=== PATIENT | male | born 1965 | race Caucasian/White ===

== ENCOUNTER 2016-10-15 21:43 | Emergency (ER) | payer BC, MEDICARE ==
[2016-10-15 22:07] VITALS: RESP 18
--- NOTE | 2016-10-15 23:28 | ED ---
Extremity Problem HPI - General Chief complaint: Extremity Problem,Nontraumatic Stated complaint: Poss Blood Clot in Leg Time Seen by Provider: 10/15/16 22:57 Source: patient, RN notes reviewed Mode of arrival: ambulatory Limitations: no limitations - History of Present Illness Initial comments: 51-year-old male presents to the emergency Department chief complaint of left lower extremity pain. Patient states he noticed some redness and swelling to the lower part of his left leg. Patient states it has been warm and tender to touch as well. Patient is visible blood clot or something else going on. Patient denies any fever or chills. Patient states his problems with lower extremity swelling he did wears compression stockings which did help with swelling. Patient states that he was concerned due to the continued redness and swelling to without that he should be evaluated. Patient states is not currently having any other symptoms at this time. Patient denies any recent fever, chills, shortness of breath, chest pain, back pain, abdominal pain, nausea vomiting, numbness or tingling, dysuria or hematuria, constipation or diarrhea, headaches or visual changes, or any other current symptoms. - Related Data Home Medications Medication Instructions Recorded Confirmed Atenolol [Tenormin] 25 mg PO QAM 12/17/13 10/15/16 Dabigatran [Pradaxa] 150 mg PO BID 12/17/13 10/15/16 Furosemide [Lasix] 20 mg PO DAILY 12/17/13 10/15/16 Gabapentin [Neurontin] 400 mg PO TID 12/17/13 10/15/16 Hydrochlorothiazide [Hydrodiuril] 25 mg PO DAILY 12/17/13 10/15/16 Lisinopril [Zestril] 5 mg PO QAM 12/17/13 10/15/16 Multivitamin [Men's Multi-Vitamin] 1 tab PO DAILY 12/17/13 10/15/16 Naproxen 500 mg PO BID 12/17/13 10/15/16 Simvastatin [Zocor] 40 mg PO HS 12/17/13 10/15/16 Allopurinol [Zyloprim] 300 mg PO DAILY 01/16/15 10/15/16 Previous Rx's Medication Instructions Recorded Cephalexin [Keflex] 500 mg PO Q6HR #40 cap 10/16/16 Allergies Allergy/AdvReac Type Severity Reaction Status Date / Time adhesive tape Allergy Severe Rash/Hives Verified 10/15/16 23:09 Review of Systems ROS Statement: Those systems with pertinent positive or pertinent negative responses have been documented in the HPI. ROS Other: All systems not noted in ROS Statement are negative. Past Medical History Past Medical History: Asthma, Hyperlipidemia, Hypertension, Musculoskeletal Disorder, Skin Disorder, Sleep Apnea/CPAP/BIPAP Additional Past Medical History / Comment(s): current pos occult stool, neuropathy, chronic back pain-cannot lay flat-gout, foot ulcers History of Any Multi-Drug Resistant Organisms: None Reported Past Surgical History: Hernia Repair, Joint Replacement, Orthopedic Surgery Additional Past Surgical History / Comment(s): right great toe amputation, bilateral knee and cali hip,2013 foot surgery bilat, l great toe bone removal with pins x 2. L 2nd toe shortened with pinning, rt 3rd toe bone removal- shortening and bent. Past Anesthesia/Blood Transfusion Reactions: No Reported Reaction Past Psychological History: No Psychological Hx Reported Smoking Status: Former smoker Past Alcohol Use History: None Reported Additional Past Alcohol Use History / Comment(s): quit smoking 1979,smoked <5 yrs <1ppd,pt states "drinks about 14 beers daily" Past Drug Use History: None Reported - Past Family History Mother Family Medical History: Diabetes Mellitus Father Family Medical History: Cancer Additional Family Medical History / Comment(s): esophageal General Exam - General Exam Comments Initial Comments: General: The patient is awake and alert, in no distress, and does not appear acutely ill. Neck: The neck is supple, there is no tenderness. Cardiovascular: There is a regular rate and rhythm. No murmur, rub or gallop is appreciated. Respiratory: Lungs are clear to auscultation, respirations are non-labored, breath sounds are equal. No wheezes, stridor, rales, or rhonchi. Musculoskeletal: Sensation intact with 2+ pulses. Left foot x-ray performed torsion left knee and left ankle. Patient does appear to have an area of redness to left foot x-ray with associated swelling noted. Appears to be chronic changes to legs however the erythema around the left central leg does appear to be new. There is a small abrasion to the center of a reddened area. Neurological: CN II-XII intact, There are no obvious motor or sensory deficits. Coordination appears grossly intact. Speech is normal. Skin: Skin is warm and dry and no rashes or lesions are noted. Psychiatric: Normal mood and affect. Limitations: no limitations Course Vital Signs 10/15/16 22:03 Temperature 99.0 F Pulse Rate 111 H Respiratory 18 Rate Blood Pressure 129/89 O2 Sat by Pulse 96 Oximetry Medical Decision Making - Medical Decision Making 51-year-old male presents for left lower x-ray swelling and redness. At this time patient's ultrasounds are reviewed that does show a cellulitis. There is a small area that is palpable on exam. We will start antibiotics. We discussed follow-up for this for resolution. At this time due to the patient's chronic nature of the legs we will not open the wound due to poor healing we will have the patient follow-up to see how he progresses. At this time he states it is already shrunk in size. At this time the patient will be discharged home on Keflex. QUESTIONS have been answered. He will be discharged home. - Radiology Data Radiology results: report reviewed, image reviewed Disposition Clinical Impression: Left leg cellulitis Disposition: HOME SELF-CARE Condition: Stable Instructions: Cellulitis (ED) Additional Instructions: Please use medication as discussed. Please follow up with family doctor if symptoms have not improved over the next two days. Please return to the emergency room if your symptoms increase or worsen or for any other concerns. Prescriptions: Cephalexin [Keflex] 500 mg PO Q6HR #40 cap Referrals: Shahida Greer MD [Primary Care Provider] - 1-2 days Time of Disposition: 00:35
--- NOTE | 2016-10-16 00:04 | US ---
EXAM: US Duplex Left Lower Extremity Veins. CLINICAL HISTORY: Left lower extremity pain. TECHNIQUE: Real-time ultrasound scan of the veins of the left lower extremity with color Doppler flow, spectral waveform analysis and compression. COMPARISON: No relevant prior studies available. FINDINGS: Deep veins: Unremarkable. No DVT in the common femoral, femoral or popliteal veins. Superficial veins: Unremarkable. No thrombus in the visualized greater saphenous vein. Soft tissues: No acute findings. No popliteal cyst. IMPRESSION: 1. No sonographic evidence for deep vein thrombosis in the left lower extremity. 2. Please see separate soft tissue ultrasound report for further detail.
--- NOTE | 2016-10-16 00:30 | US ---
EXAM: US Left Lower Extremity Non-Vascular, Complete. CLINICAL HISTORY: Left ankle pain, redness, and palpable abnormality. TECHNIQUE: Real-time ultrasound scan of the left lower extremity with image documentation. COMPARISON: No relevant prior studies available. FINDINGS: Soft tissues: Targeted ultrasound of the left ankle soft tissues at the site of redness and palpable abnormality shows diffusely increased echogenicity and hyperemia as well as edema of the subcutaneous fat. Within this region, there is a complex heterogeneously hypoechoic irregular avascular collection measuring 10 mm x 7 mm x 8 mm. IMPRESSION: 1. At the site of palpable abnormality and redness in the left ankle, there is a 10 mm x 7 mm x 8 mm complex irregular avascular collection which may reflect abscess or phlegmon. Followup to resolution recommended. 2. Surrounding the above described collection, there is diffusely increased echogenicity, hyperemia, and edema of the subcutaneous fat which is nonspecific but most compatible with cellulitis. [employer] 10/16/16 00:37 Verify Receipt Verified receipt with clerk Mcfarlane in the ER for LEXI BURRIS @ [id number]
[2016-10-16 00:36] VITALS: BP 145/91; PULSE 109; TEMP 98.6
[2016-10-16] MEDS ORDERED: CEPHALEXIN 500MG STARTER PACK 4 CAP BTL PO STA (00:36)
== END 2016-10-16 00:46 | disposition home or self-care (01) ==
LOC: EC 21:43
DX: L03.116 Cellulitis of left lower limb (principal); I10 Essential (primary) hypertension; E78.5 Hyperlipidemia, unspecified; G62.9 Polyneuropathy, unspecified; Z87.891 Personal history of nicotine dependence; Z79.899 Other long term (current) drug therapy; Z91.048 Other nonmedicinal substance allergy status; Z96.643 Presence of artificial hip joint, bilateral; Z96.653 Presence of artificial knee joint, bilateral; Z89.411 Acquired absence of right great toe
CPT/HCPCS: 99283

== ENCOUNTER → 2016-12-30 | Outpatient (CLI) | payer BC, MEDICARE ==
--- NOTE | 2016-12-31 23:21 | MR ---
EXAMINATION TYPE: MR foot RT wo/w con DATE OF EXAM: 12/30/2016 11:13 AM COMPARISON: NONE HISTORY: 51-year-old male evaluated for osteomyelitis of the right great toe. Wound along the posteri or aspect. Technique: Multiplanar, multisequence images of the right foot were obtained before and after adminis tration of 20 mL intravenous MultiHance gadolinium contrast. FINDINGS: Prior great toe amputation at the level of the first IP joint. There is ulceration along the plantar aspect of the residual great toe. Mild patchy increased fluid signal within the distal aspect of the first proximal phalanx. On sagittal T1 image 6, enhancing soft tissue inflammation extends from the p atient's ulceration to the underlying bone and there appears to be corresponding cortical thinning of the plantar aspect of the phalangeal head. Degenerative changes at the first MTP joint. Advanced degenerative changes within the mid foot and mendoza mmertoe deformities are noted. Generalized forefoot soft tissue edema. IMPRESSION: 1. Prior great toe amputation at the level of the IP joint. There is a wound along the plantar aspect of the residual great toe and enhancing inflammatory changes extend to abut the underlying bone. Whi le there is no lindsey bone marrow replacement at this time, there is cortical thinning along the plant ar aspect of the phalangeal head and impending osteomyelitis is difficult to exclude. Short interval follow-up can be considered. 2. Midfoot and first MTP joint osteoarthrosis. Hammertoe deformities. 3. Mild generalized forefoot soft tissue swelling versus cellulitis.
== END | disposition home or self-care (01) ==
LOC: RADMRIMAIN 10:24
PROVIDERS: ATTEND Surgery Vascular Surgery
DX: S91.101A Unspecified open wound of right great toe without damage to nail, initial encounter (principal)
CPT/HCPCS: 73720; A9577

== ENCOUNTER 2017-02-01 13:56 | Inpatient (IN) | payer BC, MEDICARE ==
[2017-02-01] MEDS ORDERED: SODIUM CHLORIDE 0.9% 1,000 ML IV STA ×4 (14:24→15:48)
--- NOTE | 2017-02-01 14:30 | ED ---
General Adult HPI - General Chief complaint: Weakness Stated complaint: Weakness Time Seen by Provider: 02/01/17 14:18 Source: patient, family, RN notes reviewed Mode of arrival: ambulatory Limitations: no limitations - History of Present Illness Initial comments: Patient is a pleasant 51-year-old male presenting to the emergency department with concerns for general weakness. Patient has been having diarrhea 6 or more times daily for the past 6 days. Diarrhea is watery. Decreased appetite however patient is tolerating liquids. Patient has been losing weight over the past week. Patient has had some cold symptoms intermittently for the past month or 2. Patient made feel slightly short of breath. No significant abdominal pain. No chest pain. - Related Data Home Medications Medication Instructions Recorded Confirmed Atenolol [Tenormin] 25 mg PO QAM 12/17/13 02/01/17 Dabigatran [Pradaxa] 150 mg PO BID 12/17/13 02/01/17 Furosemide [Lasix] 20 mg PO DAILY 12/17/13 02/01/17 Gabapentin [Neurontin] 400 mg PO TID 12/17/13 02/01/17 Hydrochlorothiazide [Hydrodiuril] 25 mg PO DAILY 12/17/13 02/01/17 Lisinopril [Zestril] 10 mg PO QAM 12/17/13 02/01/17 Multivitamin [Men's Multi-Vitamin] 1 tab PO DAILY 12/17/13 02/01/17 Naproxen 500 mg PO BID 12/17/13 02/01/17 Simvastatin [Zocor] 40 mg PO HS 12/17/13 02/01/17 Allopurinol [Zyloprim] 300 mg PO DAILY 01/16/15 02/01/17 Albuterol Inhaler [Ventolin Hfa 1 - 2 puff INHALATION RT-Q6H PRN 10/21/16 Inhaler] Allergies Allergy/AdvReac Type Severity Reaction Status Date / Time adhesive tape Allergy Severe Rash/Hives Verified 02/01/17 14:53 Review of Systems ROS Statement: Those systems with pertinent positive or pertinent negative responses have been documented in the HPI. ROS Other: All systems not noted in ROS Statement are negative. Constitutional: Denies: fever Eyes: Denies: eye pain ENT: Denies: ear pain Respiratory: Reports: dyspnea Cardiovascular: Denies: palpitations Endocrine: Reports: fatigue Gastrointestinal: Reports: diarrhea. Denies: abdominal pain Genitourinary: Denies: dysuria Skin: Denies: rash Neurological: Reports: weakness Psychiatric: Denies: anxiety Past Medical History Past Medical History: Asthma, Hyperlipidemia, Hypertension, Musculoskeletal Disorder, Skin Disorder, Sleep Apnea/CPAP/BIPAP Additional Past Medical History / Comment(s): current pos occult stool, neuropathy, chronic back pain-cannot lay flat-gout, foot ulcers History of Any Multi-Drug Resistant Organisms: None Reported Past Surgical History: Hernia Repair, Joint Replacement, Orthopedic Surgery Additional Past Surgical History / Comment(s): right great toe amputation, bilateral knee and cali hip,2013 foot surgery bilat, l great toe bone removal with pins x 2. L 2nd toe shortened with pinning, rt 3rd toe bone removal- shortening and bent. Past Anesthesia/Blood Transfusion Reactions: No Reported Reaction Past Psychological History: No Psychological Hx Reported Smoking Status: Never smoker Past Alcohol Use History: Daily Past Drug Use History: None Reported - Past Family History Mother Family Medical History: Diabetes Mellitus Father Family Medical History: Cancer Additional Family Medical History / Comment(s): esophageal General Exam Limitations: no limitations General appearance: alert, in no apparent distress Head exam: Present: atraumatic Eye exam: Present: normal appearance, PERRL ENT exam: Present: normal oropharynx Neck exam: Present: normal inspection Respiratory exam: Present: normal lung sounds bilaterally Cardiovascular Exam: Present: tachycardia, other (Pulses diminished throughout) GI/Abdominal exam: Present: soft, normal bowel sounds. Absent: distended, tenderness, pulsatile mass Extremities exam: Present: pedal edema. Absent: calf tenderness Neurological exam: Present: alert, CN II-XII intact. Absent: motor sensory deficit Psychiatric exam: Present: normal affect, normal mood Skin exam: Absent: rash Course Vital Signs 02/01/17 02/01/17 02/01/17 13:58 14:46 15:26 Temperature 97.5 F L Pulse Rate 102 H 108 H 101 H Respiratory 20 18 18 Rate Blood Pressure 68/42 70/47 O2 Sat by Pulse 92 L 95 98 Oximetry 02/01/17 02/01/17 15:40 16:40 Temperature Pulse Rate 101 H 99 Respiratory 18 18 Rate Blood Pressure 76/42 73/45 O2 Sat by Pulse 96 95 Oximetry - Reevaluation(s) Reevaluation #1: 02/01/17 16:53 Patient has blood pressure the mid 70s despite to have liters of fluid. His also discussed with Dr. Dubose who will consult. Fluids will continue. Levophed will be started. EKG Findings - EKG Comments: EKG Findings:: A. fib with RVR, rate 110. QRS 92. QT 324. QTC 438. Normal axis. Normal QRS. Normal ST-T. Procedures - Sepsis Sepsis Focused Exam #1 Time Sepsis Criteria Met: 15:44 Sepsis Focused Exam Date: 02/01/17 Sepsis Focused Exam Time: 16:37 Sepsis Focused Exam Complete: Yes Vital Signs & RN Notes Reviewed: Yes Capillary Refill: > 2 Seconds: Fingers (2-3 seconds), Toes (3 seconds) Peripheral Pulses: Weak: Radial (R), Radial (L), Dorsalis Pedis (R), Dorsalis Pedis (L) Skin Color: Normal for Patient Respiratory Exam: normal lung sounds Cardiovascular Exam: irregular rhythm Medical Decision Making - Medical Decision Making Patient reevaluated and updated. Patient concern exists for acute renal failure likely secondary to diarrhea and decreased oral intake. Chest x-ray concerning for pneumonia versus effusion. Patient meet severe sepsis criteria diagnosed at 3:44 PM. IV antibiotics been started. Blood cultures and lactic acid have been drawn. 4 L saline has been ordered. Case was discussed with Dr. Lamas, who will admit for Dr. Greer. Dr. Dubose paged for critical care/ pulmonary consult. Cardiology will also be placed on consult - Lab Data Result diagrams: 02/01/17 14:35 02/01/17 14:35 Lab Results 02/01/17 02/01/17 02/01/17 Range/Units 14:35 14:35 14:35 WBC 3.4 L (3.8-10.6) k/uL RBC 5.14 (4.30-5.90) m/uL Hgb 17.0 (13.0-17.5) gm/dL Hct 51.9 (39.0-53.0) % MCV 101.0 H (80.0-100.0) fL MCH 33.0 (25.0-35.0) pg MCHC 32.7 (31.0-37.0) g/dL RDW 13.6 (11.5-15.5) % Plt Count 132 L (150-450) k/uL Neutrophils % 80 % Lymphocytes % 14 % Monocytes % 4 % Eosinophils % 0 % Basophils % 1 % Neutrophils # 2.7 (1.3-7.7) k/uL Lymphocytes # 0.5 L (1.0-4.8) k/uL Monocytes # 0.1 (0-1.0) k/uL Eosinophils # 0.0 (0-0.7) k/uL Basophils # 0.0 (0-0.2) k/uL Macrocytosis Slight PT (9.0-12.0) sec INR (<1.1) APTT (22.0-30.0) sec Carbon Monoxide, Quant (<10.0) % Sodium 142 (137-145) mmol/L Potassium 4.1 (3.5-5.1) mmol/L Chloride 104 (98-107) mmol/L Carbon Dioxide 19 L (22-30) mmol/L Anion Gap 19 mmol/L BUN 45 H (9-20) mg/dL Creatinine 4.19 H (0.66-1.25) mg/dL Est GFR (MDRD) Af Amer 18 (>60 ml/min/1.73 sqM) Est GFR (MDRD) Non-Af 15 (>60 ml/min/1.73 sqM) Glucose 111 H (74-99) mg/dL Plasma Lactic Acid Gregorio (0.7-2.0) mmol/L Calcium 8.5 (8.4-10.2) mg/dL Phosphorus 6.6 H (2.5-4.5) mg/dL Magnesium 2.4 H (1.6-2.3) mg/dL Total Bilirubin 0.9 (0.2-1.3) mg/dL AST 206 H (17-59) U/L ALT 90 H (21-72) U/L Alkaline Phosphatase 78 (38-126) U/L Total Creatine Kinase 1101 H (55-170) U/L CK-MB (CK-2) 4.6 H* (0.0-2.4) ng/mL CK-MB (CK-2) Rel Index 0.4 Troponin I 0.053 H* (0.000-0.034) ng/mL Total Protein 6.9 (6.3-8.2) g/dL Albumin 3.6 (3.5-5.0) g/dL TSH 9.740 H (0.465-4.680) mIU/L Free T4 1.64 (0.78-2.19) ng/dL Free T3 pg/mL 5.2 (2.8-5.3) pg/ml 02/01/17 02/01/17 02/01/17 Range/Units 14:35 14:35 14:35 WBC (3.8-10.6) k/uL RBC (4.30-5.90) m/uL Hgb (13.0-17.5) gm/dL Hct (39.0-53.0) % MCV (80.0-100.0) fL MCH (25.0-35.0) pg MCHC (31.0-37.0) g/dL RDW (11.5-15.5) % Plt Count (150-450) k/uL Neutrophils % % Lymphocytes % % Monocytes % % Eosinophils % % Basophils % % Neutrophils # (1.3-7.7) k/uL Lymphocytes # (1.0-4.8) k/uL Monocytes # (0-1.0) k/uL Eosinophils # (0-0.7) k/uL Basophils # (0-0.2) k/uL Macrocytosis PT 12.2 H (9.0-12.0) sec INR 1.2 (<1.1) APTT 55.1 H (22.0-30.0) sec Carbon Monoxide, Quant 1.4 (<10.0) % Sodium (137-145) mmol/L Potassium (3.5-5.1) mmol/L Chloride (98-107) mmol/L Carbon Dioxide (22-30) mmol/L Anion Gap mmol/L BUN (9-20) mg/dL Creatinine (0.66-1.25) mg/dL Est GFR (MDRD) Af Amer (>60 ml/min/1.73 sqM) Est GFR (MDRD) Non-Af (>60 ml/min/1.73 sqM) Glucose (74-99) mg/dL Plasma Lactic Acid Gregorio 2.1 H (0.7-2.0) mmol/L Calcium (8.4-10.2) mg/dL Phosphorus (2.5-4.5) mg/dL Magnesium (1.6-2.3) mg/dL Total Bilirubin (0.2-1.3) mg/dL AST (17-59) U/L ALT (21-72) U/L Alkaline Phosphatase (38-126) U/L Total Creatine Kinase (55-170) U/L CK-MB (CK-2) (0.0-2.4) ng/mL CK-MB (CK-2) Rel Index Troponin I (0.000-0.034) ng/mL Total Protein (6.3-8.2) g/dL Albumin (3.5-5.0) g/dL TSH (0.465-4.680) mIU/L Free T4 (0.78-2.19) ng/dL Free T3 pg/mL (2.8-5.3) pg/ml - Radiology Data Radiology results: image reviewed (Chest x-ray shows new left lower lobe consolidation and effusion. Abdominal x-ray shows nonacute abdomen.) Critical Care Time Critical Care Time: Yes Total Critical Care Time: 41 Disposition Clinical Impression: Acute renal failure (ARF), Severe sepsis, Pneumonia, Atrial fibrillation Disposition: ADMITTED IP TO THIS [facility] Condition: Critical Decision Time: 15:51
[2017-02-01 14:55] LABS: Basophils % (A) 1 %; CH 33.9; CHCM 33.7; Eosinophils % (A) 0 %; HCT 51.9 % (39.0-53.0); HDW 2.73; Luc # (Auto) 0.07; Luc % (Auto) 2; Lymphocytes # (A) 0.5 k/uL (1.0-4.8); Lymphocytes % (A) 14 %; MCHC 32.7 g/dL (31.0-37.0); Macrocytosis Slight; Monocytes # (A) 0.1 k/uL (0-1.0); Monocytes % (A) 4 %; Neutrophils # (A) 2.7 k/uL (1.3-7.7); Neutrophils % (A) 80 %; RBC 5.14 m/uL (4.30-5.90); RDW 13.6 % (11.5-15.5); WBC 3.4 k/uL (3.8-10.6)
[2017-02-01 15:08] LABS: INR 1.2 (<1.1); Partial Thromboplastin Time 55.1 sec (22.0-30.0); Prothrombin Time 12.2 sec (9.0-12.0)
[2017-02-01 15:27] LABS: Calcium 8.5 mg/dL (8.4-10.2); Magnesium 2.4 mg/dL (1.6-2.3); Phosphorous 6.6 mg/dL (2.5-4.5); Potassium 4.1 mmol/L (3.5-5.1); Total Bilirubin 0.9 mg/dL (0.2-1.3); Total Protein 6.9 g/dL (6.3-8.2)
[2017-02-01 15:35] LABS: Creatine Kinase MB 4.6 ng/mL (0.0-2.4); Troponin I 0.053 ng/mL (0.000-0.034)
--- NOTE | 2017-02-01 15:38 | XR ---
EXAMINATION TYPE: XR chest 2V DATE OF EXAM: 02/01/2017 COMPARISON: 10/31/2013 HISTORY: Short of breath TECHNIQUE: Frontal and lateral views of the chest are obtained. FINDINGS: There is combined pleural fluid and consolidation in the left lower lobe. Right lung is cl ear. There is no heart failure. There are chest leads. IMPRESSION: There is new left lower lobe consolidation and pleural fluid compared to old exam. Cardi omegaly. No heart failure.
--- NOTE | 2017-02-01 15:41 | XR ---
EXAMINATION TYPE: XR abdomen 1V DATE OF EXAM: 02/01/2017 COMPARISON: NONE HISTORY: Short of breath and weakness. Weight loss. TECHNIQUE: 2 views FINDINGS: There is no sign of intestinal obstruction or pneumoperitoneum. There is bilateral hip pros thesis. There are no pathologic calcifications over the kidneys. Fecal pattern is normal. IMPRESSION: Nonacute abdomen.
[2017-02-01] MEDS ORDERED: LEVOFLOXACIN 750MG-D5W PMX 750 MG in DEXTROSE/WATER 1 150ML.BAG IVPB STA (15:46)
[2017-02-01] MEDS ORDERED: PNEUMONIA PROTOCOL UTILIZED 1 EACH MISC PO PRN (15:46)
[2017-02-01] MEDS ORDERED: PIPERACILLIN-TAZOBACTAM 3.375 GM in DEXTROSE/WATER 1 50ML.BAG IVPB STA (15:46)
[2017-02-01] MEDS ORDERED: SODIUM CHLORIDE 0.9% 1,100 ML IV STA (15:52)
[2017-02-01] MEDS: SODIUM CHLORIDE 0.9% 1,000 ML IV SCH (16:15)
[2017-02-01] MEDS ORDERED: DEXAMETHASONE SOD PHOSPHATE 10 MG/ML 1 ML VIAL IV STA (16:49)
[2017-02-01] MEDS ORDERED: NOREPINEPHRIN 4 MG-0.9% NS PMX 4 MG/250 ML ML IV SCH (17:00)
[2017-02-01 17:57] LABS: Glucose,Whole Blood 131 mg/dL (75-99)
[2017-02-01 19:11] LABS: Amorphous Sediment,Urine Rare /hpf; Appearance,Urine Turbid (Clear); Bacteria,Urine Rare /hpf; Bilirubin,Urine Negative (Negative); Glucose,Urine (UA) Negative (Negative); Ketones,Urine Negative (Negative); Leukocyte Esterase,Urine Negative (Negative); Mucus,Urine Rare /hpf; Nitrite,Urine Negative (Negative); PH, Urine 5.5 (5.0-8.0); Particle Count 72553; Protein,Urine 2+ (Negative); RBC,Urine 16 /hpf (0-5); Specific Gravity,Urine 1.018 (1.001-1.035); Squamous Epithelial Cell,Urine 1 /hpf (0-4); UA Billing (MACRO vs. MICRO) MICRO; WBC,Urine 13 /hpf (0-5)
[2017-02-01] MEDS ORDERED: NALOXONE 0.4 MG/ML 1 ML VIAL IV PRN (19:24)
[2017-02-01] MEDS ORDERED: DABIGATRAN 150 MG CAP PO SCH (21:00)
[2017-02-01] MEDS ORDERED: ACETAMINOPHEN TAB 325 MG TAB PO PRN (21:47)
[2017-02-01] MEDS: DABIGATRAN 75 MG CAP PO SCH (22:02)
[2017-02-01] MEDS: GABAPENTIN 400 MG CAP PO SCH (22:02)
[2017-02-02] MEDS: SODIUM CHLORIDE 0.9% 1,000 ML IV SCH ×5 (00:10→20:44)
[2017-02-02] MEDS ORDERED: TERBUTALINE FOR EXTRAVASATION 1 MG/ML VIAL SQ STA (01:38)
[2017-02-02] MEDS: PIPERACILLIN-TAZOBACTAM 3.375 GM in DEXTROSE/WATER 1 50ML.BAG IVPB SCH ×3 (01:43→18:16)
[2017-02-02] MEDS: ALBUTEROL NEBULIZED 2.5 MG/3 ML INHALATION PRN ×4 (01:54→19:55)
[2017-02-02 04:43] LABS: Basophils % (A) 0 %; CH 33.4; CHCM 33.1; Eosinophils % (A) 0 %; HCT 46.2 % (39.0-53.0); HDW 2.78; HGB 14.9 gm/dL (13.0-17.5); Luc # (Auto) 0.08; Luc % (Auto) 3; Lymphocytes # (A) 0.3 k/uL (1.0-4.8); Lymphocytes % (A) 12 %; MCH 32.8 pg (25.0-35.0); MCHC 32.3 g/dL (31.0-37.0); MCV 101.5 fL (80.0-100.0); Macrocytosis Slight; Mean Platelet Volume 7.4; Monocytes # (A) 0.1 k/uL (0-1.0); Monocytes % (A) 5 %; Neutrophils # (A) 1.8 k/uL (1.3-7.7); Neutrophils % (A) 79 %; RBC 4.55 m/uL (4.30-5.90); RDW 13.5 % (11.5-15.5); WBC 2.3 k/uL (3.8-10.6); WBC (Perox) 2.35
[2017-02-02 05:19] LABS: Calcium 7.1 mg/dL (8.4-10.2); Magnesium 2.2 mg/dL (1.6-2.3); Phosphorous 2.9 mg/dL (2.5-4.5); Potassium 3.9 mmol/L (3.5-5.1)
--- NOTE | 2017-02-02 07:21 | XR ---
EXAMINATION TYPE: XR chest 1V portable DATE OF EXAM: 02/02/2017 COMPARISON: 02/01/2017 HISTORY: Shortness of breath TECHNIQUE: Single frontal view of the chest is obtained. FINDINGS: The heart is enlarged and there is large area of consolidation involving the left lung wit h pleural effusion. Subsegmental changes at the right lung base. Could not exclude mild central venou s congestion. IMPRESSION: 1. Bilateral lower lobe infiltrate and pleural effusion greater on the left.
[2017-02-02] MEDS: MULTIVITAMINS, THERA 1 EACH TAB PO SCH (08:57)
[2017-02-02] MEDS: DABIGATRAN 75 MG CAP PO SCH ×2 (08:57→21:37)
[2017-02-02] MEDS: GABAPENTIN 400 MG CAP PO SCH ×3 (08:57→21:37)
[2017-02-02] MEDS: PANTOPRAZOLE 40 MG/10 ML VIAL IV SCH (08:57)
[2017-02-02] MEDS ORDERED: ATENOLOL 25 MG TAB PO STA (09:43)
[2017-02-02] MEDS ORDERED: THIAMINE 100 MG/ML 2 ML VIAL IM STA (09:47)
[2017-02-02] MEDS ORDERED: LORazepam 2 MG/ML SYRINGE IV PRN ×3 (09:47)
--- NOTE | 2017-02-02 12:28 | P.CNPUL ---
History of Present Illness Consult date: 02/02/17 Requesting physician: Augustine Lamas Reason for consult: pneumonia, other (Sepsis and dehydration) Chief complaint: 1 week history of diarrhea and weakness History of present illness: This is a 51-year-old white male with history of multiple medical problems including chronic atrial fibrillation, chronic bilateral lower extremities ulcers, being followed at the [facility] history of alcoholism, hypertension, gout, and history of hyperlipidemia. Patient is primarily a patient of Dr. Greer, for the last week and the patient has been complaining of severe diarrhea with over 5-6 watery stools per day. Patient has been complaining of poor appetite and not drinking much liquids including alcohol which he drinks usually on a daily basis. Patient normally drinks about 20 beers per day. But none in the last few days. Patient has also been complaining of some weight loss, nonproductive cough, but no fever no chills no hemoptysis and no chest pain. Upon arrival to the ER, patient was hypotensive requiring fluid boluses, patient was also in A. fib with controlled rate, he was also noted to have relative leukopenia, acute renal failure with BUN of 45 creatinine of 4.19, anion gap metabolic acidosis of 19 lactic acidosis with lactic acid of 2.1, elevated CPK and elevated troponin, and abnormal chest x- ray showing left lower lobe consolidation and possibly a left pleural effusion. Ultrasound was ordered last night, and it is pending at the time of this dictation. Over the last 12 hours, patient received fluid boluses, started on antibiotics in the form of Levaquin and Zosyn, C. difficile screen has been negative, patient was also placed on the alcohol withdrawal protocol, placed back on his usual meds for atrial fibrillation including Tenormin and Pradaxa. Cultures are pending, and ultrasound of the chest is also pending. Patient may require ultrasound guided thoracentesis. In the meantime the patient is demonstrating clinical improvement, and he is yet to be seen by infectious disease on consultation and by cardiology on consultation. 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 Review of Systems Constitutional: Weakness fatigue malaise and weight loss. No fever, no chills. HEENT: Negative Pulmonary: Dry hacking cough, some shortness of breath, no chest pain, no hemoptysis, no fever, and no chills. Cardiac: History of chronic atrial fibrillation maintained on Pradaxa and on Tenormin. Denies any chest pain or palpitations. GI: Refer to HPI, patient had one week history of diarrhea but no melena, no hematemesis, no abdominal pain. Genitourinary: Denies any dysuria frequency or urgency. Hematologic: Denies any history of malignancy denies any history of anemia. And in the history of thrombocytopenia. Neurologic: Occasional headaches, no blurred vision, no dizziness, no history of seizure disorder. Psychiatric: Denies any symptoms of depression or suicidal thoughts. Patient does have history of alcohol dependence and alcoholism, drinks on the average of 20 beers per day. Dermatologic: History of chronic ulcers involving his right big toe and involving his left lower extremity just above the ankle. Patient is being followed by the wound care center. Has been seen by many staff physicians at the wound care, last seen by Dr. Ramos. Past Medical History Past Medical History: Asthma, Hyperlipidemia, Hypertension, Musculoskeletal Disorder, Skin Disorder, Sleep Apnea/CPAP/BIPAP Additional Past Medical History / Comment(s): current pos occult stool, neuropathy, chronic back pain-cannot lay flat-gout, foot ulcers History of Any Multi-Drug Resistant Organisms: None Reported Past Surgical History: Hernia Repair, Joint Replacement, Orthopedic Surgery Additional Past Surgical History / Comment(s): right great toe amputation, bilateral knee and cali hip,2013 foot surgery bilat, l great toe bone removal with pins x 2. L 2nd toe shortened with pinning, rt 3rd toe bone removal- shortening and bent. Past Anesthesia/Blood Transfusion Reactions: No Reported Reaction Past Psychological History: No Psychological Hx Reported Smoking Status: Never smoker Past Alcohol Use History: Daily Past Drug Use History: None Reported - Past Family History Mother Family Medical History: Diabetes Mellitus Father Family Medical History: Cancer Additional Family Medical History / Comment(s): esophageal Medications and Allergies Home Medications Medication Instructions Recorded Confirmed Type Atenolol [Tenormin] 25 mg PO QAM 12/17/13 02/01/17 History Dabigatran [Pradaxa] 150 mg PO BID 12/17/13 02/01/17 History Furosemide [Lasix] 20 mg PO DAILY 12/17/13 02/01/17 History Gabapentin [Neurontin] 400 mg PO TID 12/17/13 02/01/17 History Hydrochlorothiazide [Hydrodiuril] 25 mg PO DAILY 12/17/13 02/01/17 History Lisinopril [Zestril] 10 mg PO QAM 12/17/13 02/01/17 History Multivitamin [Men's Multi-Vitamin] 1 tab PO DAILY 12/17/13 02/01/17 History Naproxen 500 mg PO BID 12/17/13 02/01/17 History Simvastatin [Zocor] 40 mg PO HS 12/17/13 02/01/17 History Allopurinol [Zyloprim] 300 mg PO DAILY 01/16/15 02/01/17 History Albuterol Inhaler [Ventolin Hfa 1 - 2 puff INHALATION RT-Q6H PRN 10/21/16 History Inhaler] Allergies Allergy/AdvReac Type Severity Reaction Status Date / Time adhesive tape Allergy Severe Rash/Hives Verified 02/01/17 14:53 Physical Exam Vitals: Vital Signs Temp Pulse Resp BP Pulse Ox 02/02/17 08:23 100 02/02/17 08:05 106 H 22 02/02/17 08:00 97.7 F 103 H 20 104/70 96 02/02/17 07:00 103 H 22 02/02/17 06:30 103 H 14 110/59 02/02/17 06:00 90 20 109/66 95 02/02/17 05:30 87 23 97/68 94 L 02/02/17 05:00 90 20 116/65 95 02/02/17 04:30 108 H 30 H 103/66 93 L 02/02/17 04:00 98.8 F 93 19 97/63 93 L 02/02/17 03:30 102 H 19 99/67 93 L 02/02/17 03:00 103 H 19 107/78 93 L 02/02/17 02:30 102 H 18 133/73 94 L 02/02/17 02:05 87 02/02/17 02:00 86 10 L 110/67 98 02/02/17 01:55 97 02/02/17 01:30 88 22 84/61 93 L 02/02/17 01:00 84 17 92/62 94 L 02/02/17 00:30 98.0 F 78 15 116/68 95 02/02/17 00:00 88 22 106/61 93 L 02/01/17 23:30 88 18 91/62 93 L 02/01/17 23:09 88 17 98/70 93 L 02/01/17 23:00 95 21 98/70 94 L 17 22:45 83 16 131/79 95 17 22:33 98.5 F 21 95 02/01/17 22:30 87 19 115/78 94 L 02/01/17 22:15 92 19 119/84 95 02/01/17 22:00 83 19 126/73 95 17 21:45 91 19 116/76 95 02/01/17 21:30 79 18 117/83 95 02/01/17 21:15 83 24 130/67 95 02/01/17 21:00 103 H 27 H 124/79 94 L 02/01/17 20:45 79 19 119/80 95 02/01/17 20:30 89 18 114/75 95 02/01/17 20:15 96 21 117/76 93 L 02/01/17 20:00 86 17 111/71 95 02/01/17 19:54 95 02/01/17 19:45 87 16 102/71 96 02/01/17 19:30 84 17 122/80 94 L 02/01/17 19:15 84 37 H 109/77 95 02/01/17 19:00 82 20 105/83 94 L 17 18:45 97 34 H 118/72 02/01/17 18:30 98.8 F 89 15 118/72 95 02/01/17 18:15 97 21 112/77 95 02/01/17 18:00 98.5 F 94 95 02/01/17 17:37 98.1 F 83 18 98/61 96 17 17:26 79 18 96/61 98 17 17:02 97 18 74/39 97 17 16:40 99 18 73/45 95 17 15:40 101 H 18 76/42 96 17 15:26 101 H 18 70/47 98 17 14:46 108 H 18 68/42 95 17 13:58 97.5 F L 102 H 20 92 L Intake and Output 02/01/1702/02/17 22:59 06:59 14:59 Intake Total 987.25 1200 450 Output Total 510 830 245 Balance 477.25 370 205 Intake: IV 787.5 1200 450 Piperacillin-Tazobactam 3 37.5 .375 gm In Dextrose/Water 1 50ml.bag @ 12.5 mls/hr IVPB Q8H SHEN Rx#: [id number] Sodium Chloride 0.9% 1, 750 1200 450 000 ml @ 150 mls/hr IV . Q6H40M SHEN Rx#:[id number] Intake, IV Titration 199.75 Amount Norepinephrin 4 mg-0.9% 199.75 Ns Pmx 4 mg In 250 ml @ Titrate IV .Q0M SHEN Rx#: [id number] Output: Urine 510 830 245 Other: Voiding Method Indwelling Catheter Weight 98.8 kg 98.5 kg Physical Exam: Revealed a 51-year-old white male in no form of respiratory distress. On nasal cannula, O2 sat is 93%. HEENT:[Neck is supple.] [No neck masses.] [No thyromegaly.] [No JVD.] Chest: [Diminished breath sounds at the left base with dullness and positive egophony.] Cardiac Exam: [Irregular irregular rhythm Normal S1 and S2, no S3 gallop, no murmur.] Abdomen: [Soft, nontender, no megaly, no rebound, no guarding, normal bowel sounds.] Extremities: [No clubbing, no edema, no cyanosis.] Evidence of old healing ulcer in the left lower extremity above the left ankle medially, with a scab formation. Another ulcer was noted at the palmar aspect of his right big toe. Neurological Exam: [No focal neurologic deficit.] Results - Laboratory Findings CBC and BMP: 02/02/17 04:25 02/02/17 04:25 PT/INR, D-dimer PT 12.2 sec (9.0-12.0) H 02/01/17 14:35 INR 1.2 (<1.1) 02/01/17 14:35 Abnormal lab findings: Abnormal Labs 02/01/17 02/01/17 02/01/17 14:35 14:35 14:35 WBC 3.4 L MCV 101.0 H Plt Count 132 L Lymphocytes # 0.5 L PT APTT Chloride Carbon Dioxide 19 L BUN 45 H Creatinine 4.19 H Glucose 111 H POC Glucose (mg/dL) Plasma Lactic Acid Gregorio Calcium Phosphorus 6.6 H Magnesium 2.4 H AST 206 H ALT 90 H Total Creatine Kinase 1101 H CK-MB (CK-2) 4.6 H* Troponin I 0.053 H* TSH 9.740 H Urine Protein Urine Blood Urine RBC Urine WBC Amorphous Sediment Urine Bacteria Urine Mucus 02/01/17 02/01/17 02/01/17 14:35 14:35 17:55 WBC MCV Plt Count Lymphocytes # PT 12.2 H APTT 55.1 H Chloride Carbon Dioxide BUN Creatinine Glucose POC Glucose (mg/dL) 131 H Plasma Lactic Acid Gregorio 2.1 H Calcium Phosphorus Magnesium AST ALT Total Creatine Kinase CK-MB (CK-2) Troponin I TSH Urine Protein Urine Blood Urine RBC Urine WBC Amorphous Sediment Urine Bacteria Urine Mucus 02/01/17 02/02/17 02/02/17 18:43 04:25 04:25 WBC 2.3 L MCV 101.5 H Plt Count 108 L Lymphocytes # 0.3 L PT APTT Chloride 113 H Carbon Dioxide 16 L BUN 34 H Creatinine 2.30 H Glucose 163 H POC Glucose (mg/dL) Plasma Lactic Acid Gregorio Calcium 7.1 L Phosphorus Magnesium AST ALT Total Creatine Kinase CK-MB (CK-2) Troponin I TSH Urine Protein 2+ H Urine Blood Moderate H Urine RBC 16 H Urine WBC 13 H Amorphous Sediment Rare H Urine Bacteria Rare H Urine Mucus Rare H - Diagnostic Findings Chest x-ray: image reviewed (Cardiomegaly, left lower lobe consolidation and possible left pleural effusion, right lower lobe atelectasis or possible infiltrate.) Assessment and Plan Plan: Impression: 1 acute gastroenteritis with profound dehydration and acute kidney injury. 2 acute sepsis, source could be the GI tract or could be pneumonia related. 3 acute left lower lobe pneumonia and left parapneumonic effusion. 4 chronic atrial fibrillation 5 history of alcoholism 6 history of asthma 7 history of chronic cellulitis of lower extremities and peripheral ulcers 8 history of obstructive sleep apnea syndrome 9 history of hypertension 10 history of hyperlipidemia 11 history of osteoarthritis and multiple joint surgeries. 12 abnormal CPK and positive troponin on admission. Recommendation: Agree with the present treatment plan including empiric antibiotics, bronchodilators, C. difficile screening, hydration with IV fluids, ultrasound of the chest, and if needed the patient will likely benefit from thoracentesis if there is truly a large left pleural effusion. Ultrasound of the chest has not been done at this point yet. Continue his usual meds including Tenormin and Pradaxa continue alcohol withdrawal protocol. Initiate infectious disease consultation. Continue to monitor the patient in the ICU, and he is yet to be seen by cardiology regarding his abnormal CPK and troponin, and for his chronic atrial fibrillation. We'll continue to follow, critical care time is 35 minutes. Time with Patient: Greater than 30
--- NOTE | 2017-02-02 13:09 | P.HPIM ---
History of Present Illness H&P Date: 02/02/17 50-year-old gentleman with history of chronic atrial fibrillation chronic lower extremities wounds comes in the hospital with the watery diarrhea for the last few days. Patient states that his oral intake has been poor. Patient also states that he is having some complains of cough not productive in nature or the same period of time Patient in the emergency room appear to be severely ill with a low blood pressure. Patient was noted to have a left lower lobe pneumonic infiltrate was started on empiric antibody therapy A C. diff toxin was ordered which was negative as well Patient was noted to be in an acute kidney injury with a creatinine of 4.19 Patient was also noted to have some degree of lactic acidosis Or night patient is improved after IV fluid resuscitation. Patient's renal function is improved to 2.2 His diarrhea is resolved denies having headaches blurry vision chest pain nausea vomiting diarrhea urinary urgency or frequency at this time. States to be feeling better Review of Systems All systems: negative (Noted in HPI) Past Medical History Past Medical History: Asthma, Hyperlipidemia, Hypertension, Musculoskeletal Disorder, Skin Disorder, Sleep Apnea/CPAP/BIPAP Additional Past Medical History / Comment(s): current pos occult stool, neuropathy, chronic back pain-cannot lay flat-gout, foot ulcers History of Any Multi-Drug Resistant Organisms: None Reported Past Surgical History: Hernia Repair, Joint Replacement, Orthopedic Surgery Additional Past Surgical History / Comment(s): right great toe amputation, bilateral knee and cali hip,2013 foot surgery bilat, l great toe bone removal with pins x 2. L 2nd toe shortened with pinning, rt 3rd toe bone removal- shortening and bent. Past Anesthesia/Blood Transfusion Reactions: No Reported Reaction Past Psychological History: No Psychological Hx Reported Smoking Status: Never smoker Past Alcohol Use History: Daily Past Drug Use History: None Reported - Past Family History Mother Family Medical History: Diabetes Mellitus Father Family Medical History: Cancer Additional Family Medical History / Comment(s): esophageal Medications and Allergies Home Medications Medication Instructions Recorded Confirmed Type Atenolol [Tenormin] 25 mg PO QAM 12/17/13 02/01/17 History Dabigatran [Pradaxa] 150 mg PO BID 12/17/13 02/01/17 History Furosemide [Lasix] 20 mg PO DAILY 12/17/13 02/01/17 History Gabapentin [Neurontin] 400 mg PO TID 12/17/13 02/01/17 History Hydrochlorothiazide [Hydrodiuril] 25 mg PO DAILY 12/17/13 02/01/17 History Lisinopril [Zestril] 10 mg PO QAM 12/17/13 02/01/17 History Multivitamin [Men's Multi-Vitamin] 1 tab PO DAILY 12/17/13 02/01/17 History Naproxen 500 mg PO BID 12/17/13 02/01/17 History Simvastatin [Zocor] 40 mg PO HS 12/17/13 02/01/17 History Allopurinol [Zyloprim] 300 mg PO DAILY 01/16/15 02/01/17 History Albuterol Inhaler [Ventolin Hfa 1 - 2 puff INHALATION RT-Q6H PRN 10/21/16 History Inhaler] Allergies Allergy/AdvReac Type Severity Reaction Status Date / Time adhesive tape Allergy Severe Rash/Hives Verified 02/01/17 14:53 Physical Exam Vitals: Vital Signs Temp Pulse Resp BP Pulse Ox 02/02/17 08:23 100 02/02/17 08:05 106 H 22 02/02/17 08:00 97.7 F 103 H 20 104/70 96 02/02/17 07:00 103 H 22 02/02/17 06:30 103 H 14 110/59 02/02/17 06:00 90 20 109/66 95 02/02/17 05:30 87 23 97/68 94 L 02/02/17 05:00 90 20 116/65 95 02/02/17 04:30 108 H 30 H 103/66 93 L 02/02/17 04:00 98.8 F 93 19 97/63 93 L 02/02/17 03:30 102 H 19 99/67 93 L 02/02/17 03:00 103 H 19 107/78 93 L 02/02/17 02:30 102 H 18 133/73 94 L 02/02/17 02:05 87 02/02/17 02:00 86 10 L 110/67 98 02/02/17 01:55 97 02/02/17 01:30 88 22 84/61 93 L 02/02/17 01:00 84 17 92/62 94 L 02/02/17 00:30 98.0 F 78 15 116/68 95 06/18/17 00:00 88 22 106/61 93 L 17 23:30 88 18 91/62 93 L 02/01/17 23:09 88 17 98/70 93 L 02/01/17 23:00 95 21 98/70 94 L 17 22:45 83 16 131/79 95 17 22:33 98.5 F 21 95 02/01/17 22:30 87 19 115/78 94 L 02/01/17 22:15 92 19 119/84 95 17 22:00 83 19 126/73 95 02/01/17 21:45 91 19 116/76 95 02/01/17 21:30 79 18 117/83 95 02/01/17 21:15 83 24 130/67 95 02/01/17 21:00 103 H 27 H 124/79 94 L 02/01/17 20:45 79 19 119/80 95 02/01/17 20:30 89 18 114/75 95 02/01/17 20:15 96 21 117/76 93 L 02/01/17 20:00 86 17 111/71 95 02/01/17 19:54 95 02/01/17 19:45 87 16 102/71 96 02/01/17 19:30 84 17 122/80 94 L 02/01/17 19:15 84 37 H 109/77 95 17 19:00 82 20 105/83 94 L 02/01/17 18:45 97 34 H 118/72 02/01/17 18:30 98.8 F 89 15 118/72 95 02/01/17 18:15 97 21 112/77 95 17 18:00 98.5 F 94 95 02/01/17 17:37 98.1 F 83 18 98/61 96 1717 17:26 79 18 96/61 98 17 17:02 97 18 74/39 97 17 16:40 99 18 73/45 95 17 15:40 101 H 18 76/42 96 17 15:26 101 H 18 70/47 98 17 14:46 108 H 18 68/42 95 17 13:58 97.5 F L 102 H 20 92 L Intake and Output 02/01/17 02/02/17 02/02/17 22:59 06:59 14:59 Intake Total 987.25 1200 450 Output Total 510 830 245 Balance 477.25 370 205 Intake: IV 787.5 1200 450 Piperacillin-Tazobactam 3 37.5 .375 gm In Dextrose/Water 1 50ml.bag @ 12.5 mls/hr IVPB Q8H SHEN Rx#: [id number] Sodium Chloride 0.9% 1, 750 1200 450 000 ml @ 150 mls/hr IV . Q6H40M SHEN Rx#:[id number] Intake, IV Titration 199.75 Amount Norepinephrin 4 mg-0.9% 199.75 Ns Pmx 4 mg In 250 ml @ Titrate IV .Q0M SHEN Rx#: [id number] Output: Urine 510 830 245 Other: Voiding Method Indwelling Catheter Weight 98.8 kg 98.5 kg 98.5 kg Patient Weight 02/03/17 06:59 Weight 98.5 kg Physical exam Gen. appearance oriented 3 in no distress Neck is supple no JVD Lungs good air entry clear to auscultation no rhonchi or wheezing Heart S1-S2 heard regular rate and rhythm no murmurs appreciated Abdomen is soft nontender no organomegaly bowel sounds are intact no flank tenderness Neurologically cranial nerves II-12 grossly intact no focal motor or sensory deficits noted Skin running skin changes in the lower x-rays are noted Results CBC & Chem 7: 02/02/17 04:25 02/02/17 04:25 Labs: Abnormal Lab Results - Last 24 Hours (Table) 02/01/17 02/01/17 02/01/17 Range/Units 14:35 14:35 14:35 WBC 3.4 L (3.8-10.6) k/uL MCV 101.0 H (80.0-100.0) fL Plt Count 132 L (150-450) k/uL Lymphocytes # 0.5 L (1.0-4.8) k/uL PT (9.0-12.0) sec APTT (22.0-30.0) sec Chloride (98-107) mmol/L Carbon Dioxide 19 L (22-30) mmol/L BUN 45 H (9-20) mg/dL Creatinine 4.19 H (0.66-1.25) mg/dL Glucose 111 H (74-99) mg/dL POC Glucose (mg/dL) (75-99) mg/dL Plasma Lactic Acid Gregorio (0.7-2.0) mmol/L Calcium (8.4-10.2) mg/dL Phosphorus 6.6 H (2.5-4.5) mg/dL Magnesium 2.4 H (1.6-2.3) mg/dL AST 206 H (17-59) U/L ALT 90 H (21-72) U/L Total Creatine Kinase 1101 H (55-170) U/L CK-MB (CK-2) 4.6 H* (0.0-2.4) ng/mL Troponin I 0.053 H* (0.000-0.034) ng/mL TSH 9.740 H (0.465-4.680) mIU/L Urine Protein (Negative) Urine Blood (Negative) Urine RBC (0-5) /hpf Urine WBC (0-5) /hpf Amorphous Sediment (None) /hpf Urine Bacteria (None) /hpf Urine Mucus (None) /hpf 02/01/17 02/01/17 02/01/17 Range/Units 14:35 14:35 17:55 WBC (3.8-10.6) k/uL MCV (80.0-100.0) fL Plt Count (150-450) k/uL Lymphocytes # (1.0-4.8) k/uL PT 12.2 H (9.0-12.0) sec APTT 55.1 H (22.0-30.0) sec Chloride (98-107) mmol/L Carbon Dioxide (22-30) mmol/L BUN (9-20) mg/dL Creatinine (0.66-1.25) mg/dL Glucose (74-99) mg/dL POC Glucose (mg/dL) 131 H (75-99) mg/dL Plasma Lactic Acid Gregorio 2.1 H (0.7-2.0) mmol/L Calcium (8.4-10.2) mg/dL Phosphorus (2.5-4.5) mg/dL Magnesium (1.6-2.3) mg/dL AST (17-59) U/L ALT (21-72) U/L Total Creatine Kinase (55-170) U/L CK-MB (CK-2) (0.0-2.4) ng/mL Troponin I (0.000-0.034) ng/mL TSH (0.465-4.680) mIU/L Urine Protein (Negative) Urine Blood (Negative) Urine RBC (0-5) /hpf Urine WBC (0-5) /hpf Amorphous Sediment (None) /hpf Urine Bacteria (None) /hpf Urine Mucus (None) /hpf 02/01/17 02/02/17 02/02/17 Range/Units 18:43 04:25 04:25 WBC 2.3 L (3.8-10.6) k/uL MCV 101.5 H (80.0-100.0) fL Plt Count 108 L (150-450) k/uL Lymphocytes # 0.3 L (1.0-4.8) k/uL PT (9.0-12.0) sec APTT (22.0-30.0) sec Chloride 113 H (98-107) mmol/L Carbon Dioxide 16 L (22-30) mmol/L BUN 34 H (9-20) mg/dL Creatinine 2.30 H (0.66-1.25) mg/dL Glucose 163 H (74-99) mg/dL POC Glucose (mg/dL) (75-99) mg/dL Plasma Lactic Acid Gregorio (0.7-2.0) mmol/L Calcium 7.1 L (8.4-10.2) mg/dL Phosphorus (2.5-4.5) mg/dL Magnesium (1.6-2.3) mg/dL AST (17-59) U/L ALT (21-72) U/L Total Creatine Kinase (55-170) U/L CK-MB (CK-2) (0.0-2.4) ng/mL Troponin I (0.000-0.034) ng/mL TSH (0.465-4.680) mIU/L Urine Protein 2+ H (Negative) Urine Blood Moderate H (Negative) Urine RBC 16 H (0-5) /hpf Urine WBC 13 H (0-5) /hpf Amorphous Sediment Rare H (None) /hpf Urine Bacteria Rare H (None) /hpf Urine Mucus Rare H (None) /hpf Microbiology - Last 24 Hours (Table) 02/01/17 19:16 Urine Culture - Preliminary Urine,Catheterized Thrombosis Risk Factor Assmnt - Choose All That Apply Any of the Below Risk Factors Present?: Yes Each Factor Represents 1 point: Age 41-60 years, Obesity (BMI >25), Sepsis (< 1month) Other Risk Factors: No Other congenital or acquired thrombophilia - If yes, enter type in comment: No Thrombosis Risk Factor Assessment Total Risk Factor Score: 3 Thrombosis Risk Factor Assessment Level: Moderate Risk Assessment and Plan Plan: Sepsis secondary to combination of left lower lobe pneumonia that is community acquired and acute viral gastroenteritis #2 acute kidney injury due to prerenal azotemia . #3 chronic atrial fib relation #4 chronic venous stasis #5 dyslipidemia #6 history of hypertension #7 objective sleep apnea #8 osteoarthritis plan Continue with antibody therapy. Did discuss monitoring any bleeding episodes as pradaxA is renally excreted about 80% of the drug possibility of a left- sided thoracentesis for the parapneumonic effusion with labs Continue monitoring urine output Repeat labs in a.m. Appreciate cardiology and pulmonary recommendations
--- NOTE | 2017-02-02 14:58 | US ---
EXAMINATION TYPE: US chest DATE OF EXAM: 02/02/2017 COMPARISON: NONE CLINICAL HISTORY: left pleural effusion. EXAM MEASUREMENTS: Left Pleural Effusion fluid pocket: 6.2m Left skin to fluid thickness: 5.7m Left side marked for possible thoracentesis outside the dept. Pulmonologists are able to review the images in the patient?s EMR. Limited examination due to pt unable to completely sit upright for marking. IMPRESSIONS: Limited examination. 2. Pleural fluid is present on the left. The chest was not marked.
[2017-02-02] MEDS: THIAMINE 100 MG TAB PO SCH (16:31)
[2017-02-02] MEDS: LEVOFLOXACIN 750MG-D5W PMX 750 MG in DEXTROSE/WATER 1 150ML.BAG IVPB SCH (16:31)
--- NOTE | 2017-02-02 16:45 | P.CONS ---
History of Present Illness - Reason for Consult Consult date: 02/02/17 - Chief Complaint Increasing weakness - History of Present Illness 51-year-old male has history of multiple medical troubles that includes sleep apnea requiring CPAP use. He has history of obesity. He has lower extremity venous stasis with ulcerations as follows the wound center with vascular surgery. Was having some improvement to his ulcerations as of late. However presents to the emergency center with a 5 day history of increasing illness. He was having between 5 and 6 large copious loose stools per day. He was feeling poorly. He stopped eating and drinking. He did note that his lower extremity edema started to improve a bit as he was eating and drinking so much less. He then became so weak he presented emergency center. There there is evidence of an atrial arrhythmia has been seen by cardiology. He has evidence of ulceration to the right great toe and left medial ankle which are not new. Overall he is anxious for discharge to home He is receiving the [facility] protocol Review of Systems Patient quite short of breath for moving from commode to bed. He also becomes more tachycardic and fatigued. HEENT:Denies headache or acute visual change. Denies sinus or mouth discomforts. Denies neck stiffness or pain. Denies significant oral cavity pain. Denies difficulty on swallowing. Lungs: Essentially shortness of breath with sitting as well as activity. He however does not have hemoptysis. No sputum production. Cardiovascular: He has orthopnea, dyspnea on exertion and shortness of breath at rest. Gastrointestinal:Denies nausea, vomiting, diarrhea, constipation, hematemesis, melena, hematochezia. No no significant change of bowel habit noticed. Musculoskeletal: denies significant myalgias or arthralgias. No new joint swelling. Denies new back pain. Skin: See HPI for his ulcerations Neuro: Denies headache or visual change. Denies any new onset weakness or difficulty with ambulation. Denies falls or seizures. Psychiatric:Denies anxiety or depression. Endocrine: Obesity and ulcerations to his lower extremities Past Medical History Past Medical History: Asthma, Hyperlipidemia, Hypertension, Musculoskeletal Disorder, Skin Disorder, Sleep Apnea/CPAP/BIPAP Additional Past Medical History / Comment(s): current pos occult stool, neuropathy, chronic back pain-cannot lay flat-gout, foot ulcers History of Any Multi-Drug Resistant Organisms: None Reported Past Surgical History: Hernia Repair, Joint Replacement, Orthopedic Surgery Additional Past Surgical History / Comment(s): right great toe amputation, bilateral knee and cali hip,2014 foot surgery bilat, l great toe bone removal with pins x 2. L 2nd toe shortened with pinning, rt 3rd toe bone removal- shortening and bent. Past Anesthesia/Blood Transfusion Reactions: No Reported Reaction Past Psychological History: No Psychological Hx Reported Additional Psychological History / Comment(s): . Medical disability. Manufacturing. No . No international travel. pet dogs Smoking Status: Never smoker Past Alcohol Use History: Daily Past Drug Use History: None Reported - Past Family History Mother Family Medical History: Diabetes Mellitus Father Family Medical History: Cancer Additional Family Medical History / Comment(s): esophageal Medications and Allergies Home Medications and Allergies Comment(s): Current Medications Acetaminophen (Tylenol Tab) 325 - 650 mg PO Q6HR PRN PRN Reason: Fever and/ or Pain Albuterol Sulfate (Ventolin Nebulized) 2.5 mg INHALATION RT-Q6H PRN PRN Reason: Shortness Of Breath Or Wheezing Last Admin: 02/02/17 13:29 Dose: 2.5 mg Atorvastatin Calcium (Lipitor) 20 mg PO HS [facility] Dabigatran (Pradaxa) 75 mg PO BID [facility] Last Admin: 02/02/17 08:57 Dose: 75 mg Gabapentin (Neurontin) 400 mg PO TID [facility] Last Admin: 02/02/17 16:31 Dose: 400 mg Levofloxacin 750 mg/ IV (Solution) 150 mls @ 100 mls/hr IVPB Q24H [facility] Stop: 02/14/17 16:01 Last Admin: 02/02/17 16:31 Dose: 100 mls/hr Piperacillin/Tazobactam/ (Dextrose 3.375 gm/ IV Solution) 50 mls @ 12.5 mls/hr IVPB Q8H [facility] Last Admin: 02/02/17 09:52 Dose: 12.5 mls/hr Sodium Chloride (Saline 0.9%) 1,000 mls @ 150 mls/hr IV .Q6H40M [facility] Last Admin: 02/02/17 16:34 Dose: 150 mls/hr Norepinephrine Bitartrate (Levophed-0.9% Nacl 4 Mg/250ml Pmx) 4 mg in 250 mls @ 0 mls/hr IV .Q0M [facility]; Titrate PRN Reason: Protocol Last Titration: 02/01/17 22:49 Dose: 4 mcg/min, 15 mls/hr Lorazepam (Ativan) 1 mg IV Q2HR PRN PRN Reason: CIWA 8 or 9 Lorazepam (Ativan) 1 mg IV Q1HR PRN PRN Reason: CIWA 10 to 15 Lorazepam (Ativan) 2 mg IV Q1HR PRN PRN Reason: CIWA 16 or higher Miscellaneous Information (Pneumonia Protocol Utilized) 1 each PO ONCE PRN PRN Reason: Per Protocol Multivitamins (Theragran) 1 each PO DAILY [facility] Last Admin: 02/02/17 08:57 Dose: 1 each Naloxone HCl (Narcan) 0.2 mg IV Q2M PRN PRN Reason: Opioid Reversal Pantoprazole Sodium (Protonix) 40 mg IV DAILY [facility] Last Admin: 02/02/17 08:57 Dose: 40 mg Thiamine HCl (Vitamin B-1) 100 mg PO BID@1200,1700 [facility] Last Admin: 02/02/17 16:31 Dose: 100 mg Home Medications Medication Instructions Recorded Confirmed Type Atenolol [Tenormin] 25 mg PO QAM 12/17/13 02/01/17 History Dabigatran [Pradaxa] 150 mg PO BID 12/17/13 02/01/17 History Furosemide [Lasix] 20 mg PO DAILY 12/17/13 02/01/17 History Gabapentin [Neurontin] 400 mg PO TID 12/17/13 02/01/17 History Hydrochlorothiazide [Hydrodiuril] 25 mg PO DAILY 12/17/13 02/01/17 History Lisinopril [Zestril] 10 mg PO QAM 12/17/13 02/01/17 History Multivitamin [Men's Multi-Vitamin] 1 tab PO DAILY 12/17/13 02/01/17 History Naproxen 500 mg PO BID 12/17/13 02/01/17 History Simvastatin [Zocor] 40 mg PO HS 12/17/13 02/01/17 History Allopurinol [Zyloprim] 300 mg PO DAILY 01/16/15 02/01/17 History Albuterol Inhaler [Ventolin Hfa 1 - 2 puff INHALATION RT-Q6H PRN 10/21/16 History Inhaler] Allergies Allergy/AdvReac Type Severity Reaction Status Date / Time adhesive tape Allergy Severe Rash/Hives Verified 02/01/17 14:53 Physical Exam Vitals: Vital Signs Temp Pulse Resp BP Pulse Ox 02/02/17 15:00 104 H 29 H 134/73 95 02/02/17 14:30 122 H 28 H 134/73 96 02/02/17 13:47 103 H 02/02/17 13:31 105 H 02/02/17 13:30 106 H 21 134/73 95 02/02/17 13:00 95 22 93/71 93 L 02/02/17 12:30 103 H 18 93/71 93 L 02/02/17 12:00 98 F 92 21 93/71 95 02/02/17 11:30 95 18 93/71 96 02/02/17 11:00 106 H 20 105/72 94 L 02/02/17 10:30 111 H 21 111/74 94 L 02/02/17 10:00 95 19 107/64 94 L 02/02/17 09:30 115 H 21 85/62 93 L 02/02/17 09:00 126 H 20 104/67 96 02/02/17 08:23 100 02/02/17 08:05 106 H 22 02/02/17 08:00 97.7 F 103 H 20 104/70 96 02/02/17 07:00 103 H 22 02/02/17 06:30 103 H 14 110/59 02/02/17 06:00 90 20 109/66 95 02/02/17 05:30 87 23 97/68 94 L 02/02/17 05:00 90 20 116/65 95 02/02/17 04:30 108 H 30 H 103/66 93 L 02/02/17 04:00 98.8 F 93 19 97/63 93 L 02/02/17 03:30 102 H 19 99/67 93 L 02/02/17 03:00 103 H 19 107/78 93 L 02/02/17 02:30 102 H 18 133/73 94 L 02/02/17 02:05 87 02/02/17 02:00 86 10 L 110/67 98 02/02/17 01:55 97 02/02/17 01:30 88 22 84/61 93 L 02/02/17 01:00 84 17 92/62 94 L 02/02/17 00:30 98.0 F 78 15 116/68 95 02/02/17 00:00 88 22 106/61 93 L 02/01/17 23:30 88 18 91/62 93 L 02/01/17 23:09 88 17 98/70 93 L 02/01/17 23:00 95 21 98/70 94 L 02/01/17 22:45 83 16 131/79 95 02/01/17 22:33 98.5 F 21 95 02/01/17 22:30 87 19 115/78 94 L 02/01/17 22:15 92 19 119/84 95 02/01/17 22:00 83 19 126/73 95 02/01/17 21:45 91 19 116/76 95 02/01/17 21:30 79 18 117/83 95 02/01/17 21:15 83 24 130/67 95 02/01/17 21:00 103 H 27 H 124/79 94 L 02/01/17 20:45 79 19 119/80 95 02/01/17 20:30 89 18 114/75 95 02/01/17 20:15 96 21 117/76 93 L 02/01/17 20:00 86 17 111/71 95 02/01/17 19:54 95 02/01/17 19:45 87 16 102/71 96 02/01/17 19:30 84 17 122/80 94 L 02/01/17 19:15 84 37 H 109/77 95 02/01/17 19:00 82 20 105/83 94 L 02/01/17 18:45 97 34 H 118/72 02/01/17 18:30 98.8 F 89 15 118/72 95 02/01/17 18:15 97 21 112/77 95 02/01/17 18:00 98.5 F 94 95 02/01/17 17:37 98.1 F 83 18 98/61 96 17 17:26 79 18 96/61 98 02/01/17 17:02 97 18 74/39 97 02/01/17 16:40 99 18 73/45 95 Intake and Output 02/02/17 18/17 02/02/17 06:59 14:59 22:59 Intake Total 1200 1200 150 Output Total 830 695 50 Balance 370 505 100 Intake: IV 1200 1200 150 Sodium Chloride 0.9% 1, 1200 1200 150 000 ml @ 150 mls/hr IV . Q6H40M [facility] Rx#:[id number] Output: Urine 830 695 50 Other: Voiding Method Indwelling Catheter Indwelling Catheter Weight 98.5 kg 98.5 kg Patient Weight 02/03/17 06:59 Weight 98.5 kg Pleasant obese gentleman quite short of breath for moving from the bedside commode to the bed HEENT: Anicteric conjunctiva are pink and moist nasal mucosa grossly intact without significant lesions, there is no thrush. Neck: The neck is supple without significant lymphadenopathy or thyromegaly. Lungs: Symmetrical air entry. Expiratory wheezes are heard. Dullness at the left base. Crackles at the left base no significant dullness some egophony at the left base is noted Heart: Regular rate and rhythm with an audible S1-S2, no S3 no S4. There is no significant murmur click or rub, PMI was nondisplaced. Abdomen: Positive bowel sounds soft and nontender without palpable masses or organomegaly. There was no guarding or rebound. Extremities: The upper extremities have excellent pulses they are symmetric, no significant petechiae or telangiectasia. No splinter hemorrhages were noted. Lower extremity 7 evidence of chronic venous stasis with edema and ulceration. There is an eschar on the medial aspect of the left distal calf above the medial malleolus. Eschar measures 2 x 2 centimeters. The right great toe plantar has evidence of the chronic ulceration measuring up to 2.2 x 0.1 much improved. Neuro: Awake alert oriented to person place and time. Decreased sensation to both feet from his neuropathy is noted. Results CBC & Chem 7: 02/02/17 04:25 02/02/17 04:25 Labs: Abnormal Lab Results - Last 24 Hours (Table) 02/01/17 02/01/17 02/02/17 Range/Units 17:55 18:43 04:25 WBC 2.3 L (3.8-10.6) k/uL MCV 101.5 H (80.0-100.0) fL Plt Count 108 L (150-450) k/uL Lymphocytes # 0.3 L (1.0-4.8) k/uL Chloride (98-107) mmol/L Carbon Dioxide (22-30) mmol/L BUN (9-20) mg/dL Creatinine (0.66-1.25) mg/dL Glucose (74-99) mg/dL POC Glucose (mg/dL) 131 H (75-99) mg/dL Calcium (8.4-10.2) mg/dL Urine Protein 2+ H (Negative) Urine Blood Moderate H (Negative) Urine RBC 16 H (0-5) /hpf Urine WBC 13 H (0-5) /hpf Amorphous Sediment Rare H (None) /hpf Urine Bacteria Rare H (None) /hpf Urine Mucus Rare H (None) /hpf 02/02/17 Range/Units 04:25 WBC (3.8-10.6) k/uL MCV (80.0-100.0) fL Plt Count (150-450) k/uL Lymphocytes # (1.0-4.8) k/uL Chloride 113 H (98-107) mmol/L Carbon Dioxide 16 L (22-30) mmol/L BUN 34 H (9-20) mg/dL Creatinine 2.30 H (0.66-1.25) mg/dL Glucose 163 H (74-99) mg/dL POC Glucose (mg/dL) (75-99) mg/dL Calcium 7.1 L (8.4-10.2) mg/dL Urine Protein (Negative) Urine Blood (Negative) Urine RBC (0-5) /hpf Urine WBC (0-5) /hpf Amorphous Sediment (None) /hpf Urine Bacteria (None) /hpf Urine Mucus (None) /hpf Microbiology - Last 24 Hours (Table) 02/01/17 19:16 Urine Culture - Preliminary Urine,Catheterized Laboratory Results WBC 2.3 k/uL (3.8-10.6) L 02/02/17 04:25 RBC 4.55 m/uL (4.30-5.90) 02/02/17 04:25 Hgb 14.9 gm/dL (13.0-17.5) 02/02/17 04:25 Hct 46.2 % (39.0-53.0) 02/02/17 04:25 MCV 101.5 fL (80.0-100.0) H 02/02/17 04:25 MCH 32.8 pg (25.0-35.0) 02/02/17 04:25 MCHC 32.3 g/dL (31.0-37.0) 02/02/17 04:25 RDW 13.5 % (11.5-15.5) 02/02/17 04:25 Plt Count 108 k/uL (150-450) L 02/02/17 04:25 Neutrophils % 79 % 02/02/17 04:25 Lymphocytes % 12 % 02/02/17 04:25 Monocytes % 5 % 02/02/17 04:25 Eosinophils % 0 % 02/02/17 04:25 Basophils % 0 % 02/02/17 04:25 Neutrophils # 1.8 k/uL (1.3-7.7) 02/02/17 04:25 Lymphocytes # 0.3 k/uL (1.0-4.8) L 02/02/17 04:25 Monocytes # 0.1 k/uL (0-1.0) 02/02/17 04:25 Eosinophils # 0.0 k/uL (0-0.7) 02/02/17 04:25 Basophils # 0.0 k/uL (0-0.2) 02/02/17 04:25 Macrocytosis Slight 02/02/17 04:25 PT 12.2 sec (9.0-12.0) H 02/01/17 14:35 INR 1.2 (<1.1) 02/01/17 14:35 APTT 55.1 sec (22.0-30.0) H 02/01/17 14:35 Carbon Monoxide, Quant 1.4 % (<10.0) 02/01/17 14:35 Sodium 140 mmol/L (137-145) 02/02/17 04:25 Potassium 3.9 mmol/L (3.5-5.1) 02/02/17 04:25 Chloride 113 mmol/L (98-107) H 02/02/17 04:25 Carbon Dioxide 16 mmol/L (22-30) L 02/02/17 04:25 Anion Gap 11 mmol/L 02/02/17 04:25 BUN 34 mg/dL (9-20) H 02/02/17 04:25 Creatinine 2.30 mg/dL (0.66-1.25) H 02/02/17 04:25 Est GFR (MDRD) Af Amer 36 (>60 ml/min/1.73 sqM) 02/02/17 04:25 Est GFR (MDRD) Non-Af 30 (>60 ml/min/1.73 sqM) 02/02/17 04:25 Glucose 163 mg/dL (74-99) H 02/02/17 04:25 POC Glucose (mg/dL) 131 mg/dL (75-99) H 02/01/17 17:55 POC Glu Svp Monetization ID Jonny Sandoval 02/01/17 17:55 Plasma Lactic Acid Gregorio 1.3 mmol/L (0.7-2.0) 02/01/17 17:41 Calcium 7.1 mg/dL (8.4-10.2) L 02/02/17 04:25 Phosphorus 2.9 mg/dL (2.5-4.5) 02/02/17 04:25 Magnesium 2.2 mg/dL (1.6-2.3) 02/02/17 04:25 Total Bilirubin 0.9 mg/dL (0.2-1.3) 02/01/17 14:35 AST 206 U/L (17-59) H 02/01/17 14:35 ALT 90 U/L (21-72) H 02/01/17 14:35 Alkaline Phosphatase 78 U/L (38-126) 02/01/17 14:35 Total Creatine Kinase 1101 U/L (55-170) H 02/01/17 14:35 CK-MB (CK-2) 4.6 ng/mL (0.0-2.4) H* 02/01/17 14:35 CK-MB (CK-2) Rel Index 0.4 02/01/17 14:35 Troponin I 0.053 ng/mL (0.000-0.034) H* 02/01/17 14:35 Total Protein 6.9 g/dL (6.3-8.2) 02/01/17 14:35 Albumin 3.6 g/dL (3.5-5.0) 02/01/17 14:35 TSH 9.740 mIU/L (0.465-4.680) H 02/01/17 14:35 Free T4 1.64 ng/dL (0.78-2.19) 02/01/17 14:35 Free T3 pg/mL 5.2 pg/ml (2.8-5.3) 02/01/17 14:35 Cortisol 36 ug/dL 02/01/17 17:41 Urine Color Yellow 02/01/17 18:43 Urine Appearance Turbid (Clear) 02/01/17 18:43 Urine pH 5.5 (5.0-8.0) 02/01/17 18:43 Ur Specific [place] 1.018 (1.001-1.035) 02/01/17 18:43 Urine Protein 2+ (Negative) H 02/01/17 18:43 Urine Glucose (UA) Negative (Negative) 02/01/17 18:43 Urine Ketones Negative (Negative) 02/01/17 18:43 Urine Blood Moderate (Negative) H 02/01/17 18:43 Urine Nitrite Negative (Negative) 02/01/17 18:43 Urine Bilirubin Negative (Negative) 02/01/17 18:43 Urine Urobilinogen 3.0 mg/dL (<2.0) 02/01/17 18:43 Ur Leukocyte Esterase Negative (Negative) 02/01/17 18:43 Urine RBC 16 /hpf (0-5) H 02/01/17 18:43 Urine WBC 13 /hpf (0-5) H 02/01/17 18:43 Ur Squamous Epith Cells 1 /hpf (0-4) 02/01/17 18:43 Amorphous Sediment Rare /hpf (None) H 02/01/17 18:43 Urine Bacteria Rare /hpf (None) H 02/01/17 18:43 Urine Mucus Rare /hpf (None) H 02/01/17 18:43 C. difficile (EIA) Intrp Negative (Negative) 02/01/17 19:15 Microbiology 02/01/17 19:16 Urine,Catheterized Urine Culture - Preliminary Chest x-ray: image reviewed (Left lower lobe pneumonia and effusion, effusion seen on the ultrasound) Assessment and Plan (1) Pneumonia Narrative/Plan: 51-year-old male presents to the emergency center feeling poorly over a week. Is having some profuse diarrhea. And became considerably weak and short of breath with small activities. Anahy who presented to the emergency center. He was found to have evidence of a left lower lobe pneumonia and effusion. Cardiac dysrhythmia. Infectious disease request for antibiotic therapy as well as care to the lower extremity ulcers. Left leg ulcer is treated with the DuoDERM. Right plantar ulceration is treated with the absorptive silver dressing. Both wrap in place. Add back therapy with levofloxacin and piperacillin tazobactam are in process pending further culture results. Patient has a history of MSSA but no MRSA Continued ongoing supportive care and monitor for alcohol withdrawal is on the [facility] protocol. Potential thoracentesis to improve his significant symptoms. Status: Acute (2) Acute renal failure (ARF) Status: Acute (3) Neuropathic ulcer of right foot with fat layer exposed Status: Acute (4) Alcoholic peripheral neuropathy Status: Acute
--- NOTE | 2017-02-02 18:05 | CONS ---
DATE OF CONSULTATION: Mr. Mulligan is a 51-year-old male with known history of chronic atrial fibrillation, history of hyperlipidemia, bronchial asthma who presented with a one week severe diarrhea and dehydration, came in with septic and had significant worsening renal function. Patient is followed by vehicle and equipment cleaner in [place]. He has no history of coronary artery disease according to him, No history of congestive heart failure. His level of activity is stable. He has chronic peripheral edema and he sleeps upright because of back discomfort. He has no PND. No dizziness. No palpitation. No syncope. He was hypotensive on presentation and received fluid and was on pressors. He is off the pressors now. His ventricular response was fast earlier but better now. He denies any recent chest discomfort. He was sweating at home, but did not check his temperature. His coronary risk factors are remarkable for history of hyperlipidemia. He is a nonsmoker. He is nondiabetic. His medications include: 1. Simvastatin 40 mg daily. 2. Lisinopril 10 mg daily. 3. Hydrochlorothiazide 25 mg daily. 4. Gabapentin. 5. Lasix 20 mg daily. 6. Pradaxa 150 mg twice a day. 7. Atenolol 25 mg daily. 8. Allopurinol. 9. Ventolin. REVIEW OF SYSTEMS: RESPIRATORY SYSTEM: He has history of bronchial asthma. Some dyspnea on exertion. GI system: No recent GI bleeding. No peptic ulcer disease. system: No prior history of GI bleeding. Nervous system: No stroke or seizure. PHYSICAL EXAMINATION: He is a 51-year-old male, alert, oriented, in no apparent distress. Blood pressure 104/70 with a heart rate 100s. HEAD: Normocephalic. EYES: Sclerae anicteric. NECK: Good upstroke. No bruit. No jugular venous distention. LUNGS: Clear to auscultation. HEART: Irregularly irregular. S1, S2, no S3, with a systolic murmur at the base. No diastolic murmur, ejection type. ABDOMEN: Soft, nontender. EXTREMITIES: +1 edema with a healing ulceration on the left foot. Chest x-ray shows left lower lobe consolidation. EKG reveals atrial fibrillation with nonspecific ST-T wave changes. His rate was 110. Abdominal x-ray was unremarkable. Lab data on presentation revealed white blood cells 3.4. Hemoglobin off 17, INR 1.2. BUN and creatinine 45 and 4.19. His AST is 209, ALT of 90. His plasma lactic acid on presentation was 2.1. It is down to 1.3. Troponin 0.053 on presentation. Subsequently today his BUN and creatinine are down to 24 and 2.3. His white blood cells 2.3. IMPRESSION: 1. Sepsis with severe diarrhea with some element with possible pneumonia as well. 2. Chronic atrial fibrillation. 3. Acute renal failure, improving from dehydration. 4. Hyperlipidemia. 5. History of bronchial asthma. RECOMMENDATIONS: Patient has been restarted on his beta yoel and the lower dose of Pradaxa. Will follow his renal function. I will obtain echocardiogram with Doppler. Will try to obtain the work-up that was done by his vehicle and equipment cleaner recently. Depending on his progress, further recommendation will be made. Thank you for this consult. We will follow with you.
[2017-02-02] MEDS: ATORVASTATIN 20 MG TAB PO SCH (21:37)
[2017-02-02] MEDS: BENZONATATE 100 MG CAP PO PRN (22:18)
[2017-02-02] MEDS: IPRATROPIUM-ALBUTEROL 3 ML NEB INHALATION PRN (23:40)
[2017-02-03] MEDS: PIPERACILLIN-TAZOBACTAM 3.375 GM in DEXTROSE/WATER 1 50ML.BAG IVPB SCH ×4 (02:31→17:41)
[2017-02-03] MEDS: IPRATROPIUM-ALBUTEROL 3 ML NEB INHALATION PRN ×4 (03:10→21:47)
[2017-02-03 04:40] LABS: Basophils % (A) 0 %; CH 33.9; CHCM 34.1; Eosinophils % (A) 0 %; HCT 42.9 % (39.0-53.0); HDW 2.89; HGB 14.4 gm/dL (13.0-17.5); Luc # (Auto) 0.12; Luc % (Auto) 3; Lymphocytes # (A) 0.3 k/uL (1.0-4.8); Lymphocytes % (A) 7 %; MCH 33.6 pg (25.0-35.0); MCHC 33.6 g/dL (31.0-37.0); Mean Platelet Volume 7.1; Monocytes # (A) 0.2 k/uL (0-1.0); Monocytes % (A) 4 %; Neutrophils # (A) 3.3 k/uL (1.3-7.7); Neutrophils % (A) 85 %; RBC 4.29 m/uL (4.30-5.90); RDW 13.2 % (11.5-15.5); WBC 3.8 k/uL (3.8-10.6); WBC (Perox) 4.05
[2017-02-03 05:02] LABS: Anion Gap 9 mmol/L; Blood Urea Nitrogen 25 mg/dL (9-20); Calcium 7.6 mg/dL (8.4-10.2); Carbon Dioxide 18 mmol/L (22-30); Chloride 114 mmol/L (98-107); Glucose 182 mg/dL (74-99); Magnesium 2.1 mg/dL (1.6-2.3); Non-African American GFR(MDRD) 58 (>60 ml/min/1.73 sqM); Phosphorous 1.9 mg/dL (2.5-4.5); Potassium 4.1 mmol/L (3.5-5.1); Sodium 141 mmol/L (137-145)
[2017-02-03 05:46] LABS: INR 1.1 (<1.1); Prothrombin Time 10.7 sec (9.0-12.0)
[2017-02-03] MEDS: SODIUM PHOSPHATE 10 MMOL in SODIUM CHLORIDE 0.9% 250 ML IVPB SCH ×2 (06:00→08:12)
[2017-02-03] MEDS: DABIGATRAN 75 MG CAP PO SCH (07:44)
--- NOTE | 2017-02-03 07:57 | XR ---
EXAMINATION TYPE: XR chest 1V portable DATE OF EXAM: 02/03/2017 HISTORY: pleural effusion. REFERENCE: Previous study dated 02/02/2017. FINDINGS: There is a prominent left-sided pleural effusion, unchanged from previous. There is multich anibal cardiac enlargement. There is vascular congestion without lindsey edema. IMPRESSION: 1. CARDIOMEGALY. 2. VASCULAR CONGESTION. 3. PROMINENT LEFT-SIDED EFFUSION.
[2017-02-03] MEDS ORDERED: ATENOLOL 25 MG TAB PO STA (08:10)
[2017-02-03] MEDS: MULTIVITAMINS, THERA 1 EACH TAB PO SCH (08:16)
[2017-02-03] MEDS: GABAPENTIN 400 MG CAP PO SCH ×3 (08:16→21:49)
[2017-02-03] MEDS: PANTOPRAZOLE 40 MG/10 ML VIAL IV SCH (08:17)
[2017-02-03] MEDS ORDERED: ARTIFICIAL TEARS-HYPROMELLOSE DROPS 15 ML BTL BOTH EYES PRN (08:23)
[2017-02-03] MEDS ORDERED: DABIGATRAN 150 MG CAP PO SCH (09:00)
--- NOTE | 2017-02-03 09:21 | PN ---
Mr. Mulligan is a 51-year-old male with known history of chronic alcohol intake, history of chronic atrial fibrillation, persistent and anticoagulated, who presented with symptoms of diarrhea, poor p.o. intake as well as pneumonia. He is feeling better this morning. He denies any chest pain. He continues to have a cough. He denies any dizziness or palpitation. His ventricular response is slightly on the faster side. He denies any nausea. He continues to be at this time on Pradaxa 75 mg twice a day, levofloxacin, thiamine. PHYSICAL EXAMINATION: Blood pressure 132/80 with the heart rate in the low 100's. LUNGS: With decreased air exchange with fewer crackles. HEART: Irregular, irregular. S1, S2, no S3, with a systolic murmur. ABDOMEN: Soft, obese, nontender. EXTREMITIES: Trace to 1+ edema bilaterally with ulceration noted. Lab data revealed a hemoglobin 14.4 white blood cells 3.8. BUN and creatinine 25 and 1.3. Potassium 4.1. IMPRESSION: 1. Acute renal failure, improving related to severe dehydration with diarrhea and poor p.o. intake. 2. Diarrhea and possible pneumonia. 3. Persistent chronic atrial fibrillation, anticoagulated. 4. History of hyperlipidemia. 5. History of bronchial asthma. RECOMMENDATIONS: From the cardiac standpoint, he will be back on his dose of Pradaxa since his renal function improved. I will review the results of his echocardiogram. We will try to obtain the prior workup that was done by his equipment processer storage down in [place]. Depending on his progress, further recommendation will be made.
[2017-02-03] MEDS ORDERED: methylPREDNISolone SOD SUCCI 125 MG/2 ML VIAL IV STA (09:36)
[2017-02-03] MEDS: ATENOLOL 25 MG TAB PO SCH (09:56)
--- NOTE | 2017-02-03 10:31 | ECHOF ---
Referral Reason:afib MEASUREMENTS -------- HEIGHT: 185.4 cm WEIGHT: 145.6 kg BP: 132/86 RVIDd: 3.1 cm (< 3.3) IVSd: 1.4 cm (0.6 - 1.1) LVIDd: 3.9 cm (3.9 - 5.3) LVPWd: 1.4 cm (0.6 - 1.1) IVSs: 1.7 cm LVIDs: 2.9 cm LVPWs: 1.6 cm LA Diam: 2.5 cm (2.7 - 3.8) LAESV Index (A-L): 36.15 ml/m Ao Diam: 3.3 cm (2.0 - 3.7) AV Cusp: 1.7 cm (1.5 - 2.6) RAP: 5.00 mmHg RVSP: 24.94 mmHg FINDINGS -------- Atrial fibrillation. This was a technically difficult study with suboptimal views. The left ventricular size is normal. There is moderate concentric left ventricular hypertrophy. Overall left ventricular systolic function is low-normal with, an EF between 50 - 55 %. The right ventricle is normal in size and function. LA is midly dilated 29-33ml/m2. The right atrium is normal in size. 1.5mg of Definity was utilized for enhancement of images The aortic valve was not well visualized. Mild mitral annular calcification present. Mild tricuspid regurgitation present. Right ventricular systolic pressure is normal at < 35 mmHg. The pulmonic valve was not well visualized. The aortic root size is normal. The inferior vena cava is mildly dilated. The pericardium is normal. CONCLUSIONS -------- 1. Atrial fibrillation. 2. Mild tricuspid regurgitation present. 3. Right ventricular systolic pressure is normal at < 35 mmHg. 4. The pulmonic valve was not well visualized. 5. The aortic root size is normal. 6. The inferior vena cava is mildly dilated. 7. The pericardium is normal. 8. This was a technically difficult study with suboptimal views. 9. The left ventricular size is normal. 10. There is moderate concentric left ventricular hypertrophy. 11. The right ventricle is normal in size and function. 12. LA is midly dilated 29-33ml/m2. 13. 1.5mg of Definity was utilized for enhancement of images 14. The aortic valve was not well visualized. 15. Mild mitral annular calcification present. TAR HEEL: Roxanna Wiley RDCS
--- NOTE | 2017-02-03 11:38 | PN ---
This is a patient who was seen in consultation by my partner yesterday. He was admitted with a diagnosis of acute gastroenteritis with dehydration and acute kidney injury, acute sepsis, either from pneumonia or from the GI tract, acute left lower lobe pneumonia with left parapneumonic effusion, chronic atrial fibrillation, history of alcohol abuse, history of asthma, history of chronic lower extremity cellulitis, obstructive sleep apnea syndrome, hypertension, hyperlipidemia, DJD, and elevated CKs and troponins on admission. The patient is doing better today. Currently, he is just getting O2 at 2 L, an IV at 0.9 at 150 an hour. The left chest was marked by ultrasound for possible thoracentesis. The patient as I mentioned is feeling much stronger, less pulmonary complaints. No breathing disorder. No chest pain, chest discomfort. No fever or chills at this time. His temperature is 97.6, heart rate 89, respiratory rate 20, blood pressure 137/87, mean 103, two liter saturation 95%. Appears in no acute distress. HEENT examination is grossly unremarkable. Mucous membranes are moist. No oral lesions. ( ) normal. NECK: Supple. Full range of motion. No adenopathy or thyromegaly. Neck veins are flat. Cardiovascular examination reveals regular rhythm and rate. S1, S2 normal. No S3, S4 or murmur. Lungs reveal some expiratory wheezes or rhonchi. Breath sounds are diminished. There is slight prolongation. ABDOMEN: Soft. Bowel sounds are heard. Extremities are intact. The left lower extremity is wrapped. There is some edema. Skin without rash. NEUROLOGICAL: Nonfocal. Labs are reviewed. White count 3.8, hemoglobin 14.4, hematocrit 42.9, platelet count 113,000. Sodium 141, potassium 4.1, chloride is 114, CO2 of 18, BUN 25 and 1.30. Anion gap is 9. Glucose 182. Calcium 7.6. Phosphorus 1.9. Urine shows 2+ protein, moderate blood, 16 RBCs, 13 WBCs and some rare bacteria. C. difficile testing was negative. Chest x-ray were done. It shows a left-sided effusion. Some left lower lobe infiltrate. Microbiology thus far is all negative. Medications are reviewed. ASSESSMENT: 1. Acute sepsis of unclear etiology. Sources can include gastroenteritis versus pneumonia with parapneumonic effusion. 2. Pneumonia with parapneumonic effusion. 3. History of chronic atrial fibrillation. 4. History of chronic alcohol abuse. 5. History of asthma. 6. History of chronic lower extremity cellulitis. 7. Sleep apnea syndrome. 8. Obesity. 9. Hypertension. 10. Hyperlipidemia. 11. Degenerative joint disease. 12. Elevated troponin. PLAN: The patient will have interventional radiology do a thoracentesis on him. No additional recommendations are made. Prognosis is guarded. Currently antibiotic-kimble, he is on Zosyn and Levaquin. Additional recommendations and suggestions are forthcoming.
[2017-02-03] MEDS: SODIUM CHLORIDE 0.9% 1,000 ML IV SCH ×2 (12:45→21:59)
[2017-02-03] MEDS ORDERED: ONDANSETRON 4 MG/2 ML VIAL IVP PRN (12:50)
[2017-02-03] MEDS: THIAMINE 100 MG TAB PO SCH ×2 (12:56→17:41)
--- NOTE | 2017-02-03 13:34 | CDI ---
In responding to this query, please exercise your independent professional judgment. The [facility] Coding Staff and Clinical Documentation Specialists appreciate your assistance in clarifying documentation, maintaining compliance with coding guidelines, accurately documenting patients condition and capturing severity of illness. The fact that a question is asked does not imply that any particular answer is desired or expected. Communication forms are a method of clarifying documentation and are not made part of the Legal Health Record. Thank you in advance for your clarification. Last Revision, November 2016 Berna Dill [address] [place] [address] Documentation Clarification Form Date: 02/03/2017 12:21:00 PM From: Nickie Sanjay Admit Date: 02/01/2017 3:46:00 PM Patient Name: Young Mulligan Visit Number: [id number] Discharge Date: Dr. Augustine Lamas Sepsis is documented in the H&P and progress notes. History/Risk Factors: Asthma, Hypertension, Clinical Indicators: ED with complaints of watery diarrhea, nonproductive cough and poor intake, fatigue. WBC 3.4 Lactic acid: 2.1 Blood cultures: Pending Chest x-ray: concerning for pneumonia. Vital signs on admission: 68/42 108 18 97.5 95 % 2/L ED Note: patient has blood pressure in the mid 70's despite 2 liters of fluid. Levophed was started. Meet severe sepsis criteria. Treatment: 4 Liters IV Fluid Levophed Drip (titrate) Levaquin IV Zosyn IV Monitor Labs In your professional opinion, please further clarify Sepsis and if these findings signify one of the following conditions, whether the condition is POA, and cause, if known: Septic Shock Unable to determine Other, please specify * Identify the (suspected) organism * Link or clarify if there is associated (due to/with): - Organ failure - Shock SIRS Criteria: 2 or more of the following may indicate SIRS Temperature < 96.8F(36C) or > 101.0F (38C) Heart Rate > 90 bpm Respiratory Rate > 20 breaths/min or PaCO2 < 32 mmHg White Blood Cell Count > 12,000 or < 4,000 cells/mm3 or > 10% bands Lactate >2.0 mmol/L (>4.0 is equivalent to septic shock) Please document in your progress notes and discharge summary in order to capture severity of illness and risk of mortality. Include clinical findings that support your diagnosis. FYI: Press F11 to launch patient chart. Place X here if this finding has no clinical significance, is not applicable or if you are not able to provide any additional documentation. MAIKOL
--- NOTE | 2017-02-03 15:55 | P.PN ---
Subjective 1-year-old gentleman with history of chronic atrial fibrillation chronic lower extremities wounds comes in the hospital with the watery diarrhea for the last few days. Patient states that his oral intake has been poor. Patient also states that he is having some complains of cough not productive in nature or the same period of time Patient in the emergency room appear to be severely ill with a low blood pressure. Patient was noted to have a left lower lobe pneumonic infiltrate was started on empiric antibody therapy A C. diff toxin was ordered which was negative as well Patient was noted to be in an acute kidney injury with a creatinine of 4.19 Patient was also noted to have some degree of lactic acidosis Or night patient is improved after IV fluid resuscitation. Patient's renal function is improved to 2.2 His diarrhea is resolved denies having headaches blurry vision chest pain nausea vomiting diarrhea urinary urgency or frequency at this time. States to be feeling better 02/03/17 continues to have cough non productive in nature No fevers, chills, abdominal pain is reported pt has had 2-3 episodes of loose stools today Objective - Vital Signs Vital signs: Vital Signs Temp 97.3 F L 02/03/17 15:00 Pulse 103 H 02/03/17 15:00 Resp 18 02/03/17 15:00 BP 122/86 02/03/17 15:00 Pulse Ox 94 L 02/03/17 15:00 Intake & Output 02/02/17 02/03/17 02/03/17 18:59 06:59 18:59 Intake Total 2022.5 1970.0 1005 Output Total 1165 735 550 Balance 857.5 1235.0 455 Weight 98.5 kg 145.7 kg Intake: IV 1962.5 1850.0 975 Levofloxacin 750Mg-D5w 150 Pmx 750 mg In Dextrose/ Water 1 150ml.bag @ 100 mls/hr IVPB Q24H [facility] Rx#: [id number] Piperacillin-Tazobactam 3 12.5 75.0 .375 gm In Dextrose/Water 1 50ml.bag @ 12.5 mls/hr IVPB Q8H [facility] Rx#: [id number] Sodium Chloride 0.9% 1, 1800 1650 600 000 ml @ 75 mls/hr IV . [id number] [facility] Rx#:[id number] Sodium Phosphate 10 mmol 125 375 In Sodium Chloride 0.9% 250 ml @ 125 mls/hr IVPB Q2H ON LICENSE OF [facility] Rx#:[id number] Oral 60 120 30 Output: Urine 1165 735 550 Other: Voiding Method Indwelling Catheter Indwelling Catheter Indwelling Catheter # Bowel Movements 1 1 - Constitutional General appearance: Present: no acute distress - EENT Eyes: Present: EOMI - Respiratory Respiratory: bilateral: dullness, wheezing, negative: rales, prolonged expiration - Cardiovascular Rhythm: regular Heart sounds: normal: S1, S2 Abnormal Heart Sounds: Absent: systolic murmur - Gastrointestinal General gastrointestinal: Present: normal bowel sounds, soft. Absent: organomegaly - Integumentary Integumentary: Present: normal (bilateral lower ext. chronic skin changes noted left lower ext. scab noted above the medial malleolus) - Labs CBC & Chem 7: 02/03/17 04:17 02/03/17 04:17 Labs: Abnormal Lab Results - Last 24 Hours (Table) 02/03/17 02/03/17 Range/Units 04:17 04:17 RBC 4.29 L (4.30-5.90) m/uL Plt Count 113 L (150-450) k/uL Lymphocytes # 0.3 L (1.0-4.8) k/uL Chloride 114 H (98-107) mmol/L Carbon Dioxide 18 L (22-30) mmol/L BUN 25 H (9-20) mg/dL Creatinine 1.30 H (0.66-1.25) mg/dL Glucose 182 H (74-99) mg/dL Calcium 7.6 L (8.4-10.2) mg/dL Phosphorus 1.9 L (2.5-4.5) mg/dL Microbiology - Last 24 Hours (Table) 02/01/17 19:16 Urine Culture - Final Urine,Catheterized 02/01/17 14:35 Blood Culture - Preliminary Blood No Growth after 24 hours Assessment and Plan Plan: Sepsis secondary to combination of left lower lobe pneumonia that is community acquired and acute viral gastroenteritis #2 acute kidney injury due to prerenal azotemia . #3 chronic atrial fib relation #4 chronic venous stasis #5 dyslipidemia #6 history of hypertension #7 objective sleep apnea #8 osteoarthritis plan abx chest xray reviewed on 2 l one dose of imodium ivf 75cc/hr one dose of solumedrol 125mg low dose of steroids will be initiated breathing tx anti tussives pulmonary on board
[2017-02-03] MEDS: BENZONATATE 100 MG CAP PO PRN (16:07)
[2017-02-03] MEDS: LEVOFLOXACIN 750MG-D5W PMX 750 MG in DEXTROSE/WATER 1 150ML.BAG IVPB SCH (16:07)
[2017-02-03 21:24] LABS: Glucose,Whole Blood 218 mg/dL (75-99)
[2017-02-03] MEDS: ATORVASTATIN 20 MG TAB PO SCH (21:49)
[2017-02-03] MEDS: INSULIN LISPRO (humaLOG) 300 UNIT/3 ML VIAL SQ SCH (21:58)
[2017-02-04] MEDS: PIPERACILLIN-TAZOBACTAM 3.375 GM in DEXTROSE/WATER 1 50ML.BAG IVPB SCH ×3 (03:16→17:48)
[2017-02-04 03:26] LABS: Hemoglobin A1C 5.7 % (4.2-6.1)
[2017-02-04] MEDS: IPRATROPIUM-ALBUTEROL 3 ML NEB INHALATION PRN ×4 (07:00→20:55)
[2017-02-04 07:09] LABS: Glucose,Whole Blood 142 mg/dL (75-99)
[2017-02-04] MEDS: INSULIN LISPRO (humaLOG) 300 UNIT/3 ML VIAL SQ SCH ×4 (08:00→22:36)
[2017-02-04 08:18] LABS: Basophils % (A) 1 %; CH 33.4; CHCM 32.9; Eosinophils % (A) 0 %; HCT 44.9 % (39.0-53.0); HGB 14.7 gm/dL (13.0-17.5); Luc # (Auto) 0.18; Luc % (Auto) 3; Lymphocytes # (A) 0.4 k/uL (1.0-4.8); Lymphocytes % (A) 8 %; MCH 33.5 pg (25.0-35.0); MCHC 32.7 g/dL (31.0-37.0); MCV 102.4 fL (80.0-100.0); Macrocytosis Slight; Mean Platelet Volume 7.7; Monocytes # (A) 0.2 k/uL (0-1.0); Monocytes % (A) 4 %; Neutrophils # (A) 4.3 k/uL (1.3-7.7); Neutrophils % (A) 83 %; RBC 4.38 m/uL (4.30-5.90); RDW 13.6 % (11.5-15.5); WBC 5.2 k/uL (3.8-10.6); WBC (Perox) 5.11
[2017-02-04 09:01] LABS: Anion Gap 10 mmol/L; Blood Urea Nitrogen 24 mg/dL (9-20); Carbon Dioxide 17 mmol/L (22-30); Chloride 117 mmol/L (98-107); Glucose 158 mg/dL (74-99); Magnesium 2.2 mg/dL (1.6-2.3); Non-African American GFR(MDRD) >60 (>60 ml/min/1.73 sqM); Phosphorous 2.5 mg/dL (2.5-4.5); Potassium 4.2 mmol/L (3.5-5.1); Sodium 144 mmol/L (137-145)
[2017-02-04] MEDS: ATENOLOL 25 MG TAB PO SCH (09:58)
[2017-02-04] MEDS: PANTOPRAZOLE 40 MG TABLET PO SCH (09:58)
[2017-02-04] MEDS: predniSONE 20 MG TAB PO SCH (09:58)
[2017-02-04] MEDS: GABAPENTIN 400 MG CAP PO SCH ×3 (09:59→22:35)
[2017-02-04] MEDS: MULTIVITAMINS, THERA 1 EACH TAB PO SCH (09:59)
[2017-02-04 11:54] LABS: Glucose,Whole Blood 155 mg/dL (75-99)
--- NOTE | 2017-02-04 11:55 | P.PN ---
Subjective This is a 51-year-old white male with history of multiple medical problems including chronic atrial fibrillation, chronic bilateral lower extremities ulcers, [facility] history of alcoholism, hypertension, gout, and history of hyperlipidemia. Patient is primarily a patient of Dr. Greer, for the last week and the patient has been complaining of severe diarrhea with over 5-6 watery stools per day. Patient has been complaining of poor appetite and not drinking much liquids including alcohol which he drinks usually on a daily basis. Patient normally drinks about 20 beers per day. But none in the last few days. Patient has also been complaining of some weight loss, nonproductive cough, but no fever no chills no hemoptysis and no chest pain. Upon arrival to the ER, patient was hypotensive requiring fluid boluses, patient was also in A. fib with controlled rate, he was also noted to have relative leukopenia, acute renal failure with BUN of 45 creatinine of 4.19, anion gap metabolic acidosis of 19 lactic acidosis with lactic acid of 2.1, elevated CPK and elevated troponin, and abnormal chest x- ray showing left lower lobe consolidation and possibly a left pleural effusion. Ultrasound was ordered last night, and it is pending at the time of this dictation. Over the last 12 hours, patient received fluid boluses, started on antibiotics in the form of Levaquin and Zosyn, C. difficile screen has been negative, patient was also placed on the alcohol withdrawal protocol, placed back on his usual meds for atrial fibrillation including Tenormin and Pradaxa. Cultures are pending, and ultrasound of the chest is also pending. Patient may require ultrasound guided thoracentesis. In the meantime the patient is demonstrating clinical improvement, and he is yet to be seen by infectious disease on consultation and by cardiology on consultation. 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 The patient is seen again today 02/04/2017 in follow-up on the medical floor. He is awake and alert in no acute distress. He denies any worsening shortness of breath, cough or congestion. The plan is for interventional radiology to perform a ultrasound guided thoracentesis. The patient had been on Pradaxa which has been held now. He is maintaining good O2 saturations in the high 90s on room air. His been hemodynamically stable. Blood cultures reveal no growth to date. He remains on Zosyn and Levaquin. Objective - Vital Signs Vital signs: Vital Signs Temp 96.5 F L 02/04/17 07:00 Pulse 106 H 02/04/17 11:48 Resp 16 02/04/17 11:48 BP 160/104 02/04/17 07:00 Pulse Ox 97 02/04/17 07:01 Intake & Output 02/03/17 02/04/17 02/04/17 18:59 06:59 18:59 Intake Total 1325 Output Total 800 775 Balance 525 -775 Weight 145.7 kg Intake: IV 1175 Levofloxacin 750Mg-D5w 150 Pmx 750 mg In Dextrose/ Water 1 150ml.bag @ 100 mls/hr IVPB Q24H [facility] Rx#: [id number] Piperacillin-Tazobactam 3 50 .375 gm In Dextrose/Water 1 50ml.bag @ 12.5 mls/hr IVPB Q8H [facility] Rx#: [id number] Sodium Chloride 0.9% 1, 600 000 ml @ 75 mls/hr IV . [id number] [facility] Rx#:[id number] Sodium Phosphate 10 mmol 375 In Sodium Chloride 0.9% 250 ml @ 125 mls/hr IVPB Q2H [facility] Rx#:[id number] Oral 150 Output: Urine 800 775 Other: Voiding Method Urinal Urinal Urinal # Voids 1 # Bowel Movements 1 1 - Exam GENERAL EXAM: Alert, active, comfortable in no apparent distress. HEAD: Normocephalic. EYES: Normal reaction of pupils, equal size. NOSE: Clear with pink turbinates. THROAT: No erythema or exudates. NECK: No masses, no JVD. CHEST: No chest wall deformity. LUNGS: Equal air entry with crackles in the left base. Diminished.. CVS: S1 and S2 normal with no audible mumurs, regular rhythm. ABDOMEN: No hepatosplenomegaly, normal bowel sounds, no guarding or rigidity. SPINE: No scoliosis or deformity SKIN: No rashes CENTRAL NERVOUS SYSTEM: No focal deficits, tone is normal in all 4 extremities. Extremities: There is trace peripheral edema. No clubbing, no cyanosis. Peripheral pulses are intact. - Labs CBC & Chem 7: 02/04/17 07:39 02/04/17 07:39 Labs: Abnormal Lab Results - Last 24 Hours (Table) 02/03/17 02/04/17 02/04/17 Range/Units 21:23 06:45 07:39 MCV 102.4 H (80.0-100.0) fL Plt Count 139 L (150-450) k/uL Lymphocytes # 0.4 L (1.0-4.8) k/uL Chloride (98-107) mmol/L Carbon Dioxide (22-30) mmol/L BUN (9-20) mg/dL Glucose (74-99) mg/dL POC Glucose (mg/dL) 218 H 142 H (75-99) mg/dL Calcium (8.4-10.2) mg/dL 02/04/17 Range/Units 07:39 MCV (80.0-100.0) fL Plt Count (150-450) k/uL Lymphocytes # (1.0-4.8) k/uL Chloride 117 H (98-107) mmol/L Carbon Dioxide 17 L (22-30) mmol/L BUN 24 H (9-20) mg/dL Glucose 158 H (74-99) mg/dL POC Glucose (mg/dL) (75-99) mg/dL Calcium 8.0 L (8.4-10.2) mg/dL Microbiology - Last 24 Hours (Table) 02/01/17 14:35 Blood Culture - Preliminary Blood No Growth after 48 hours Assessment and Plan Plan: Impression: 1 acute gastroenteritis with profound dehydration and acute kidney injury. Creatinine recovered 1.08. 2 acute sepsis, source could be the GI tract or could be pneumonia related. 3 acute left lower lobe pneumonia and left parapneumonic effusion. 4 chronic atrial fibrillation 5 history of alcoholism 6 history of asthma 7 history of chronic cellulitis of lower extremities and peripheral ulcers 8 history of obstructive sleep apnea syndrome 9 history of hypertension 10 history of hyperlipidemia 11 history of osteoarthritis and multiple joint surgeries. 12 abnormal CPK and positive troponin on admission. Plan: The patient was seen and evaluated by Dr. Ferrari. He is currently stable from the pulmonary and critical care standpoint. We'll await thoracentesis to be done by interventional radiology. His Pradaxa remains on hold. We will increase his activity as tolerated. We'll continue to follow.
[2017-02-04] MEDS: THIAMINE 100 MG TAB PO SCH ×2 (13:30→17:48)
[2017-02-04] MEDS: SODIUM CHLORIDE 0.9% 1,000 ML IV SCH (13:31)
[2017-02-04] MEDS ORDERED: LEVOFLOXACIN 750 MG TAB PO SCH (16:00)
[2017-02-04 17:01] LABS: Glucose,Whole Blood 180 mg/dL (75-99)
--- NOTE | 2017-02-04 17:59 | P.PN ---
Subjective Date of service 02/04/2017. Progress note being dictated for Dr. Richmond. Interval history: This is a 51-year-old gentleman admitted with sepsis secondary to left lower lobe pneumonia, community-acquired, acute viral gastroenteritis, acute renal failure and multiple other medical issues. Transferred out of ICU yesterday to [facility] unit. Continues on Zosyn and Levaquin. Maintained on gentle IV fluid hydration. Echo suboptimal reporting EF 50-55%. Left pleural effusion fluid pocket per ultrasound, potential thoracentesis pending with interventional radiology. Pradaxa on hold. Afebrile , blood cultures currently negative. Denies chest pain, palpitations. Denies increase in shortness of breath. Objective - Vital Signs Vital signs: Vital Signs Temp 96.3 F L 02/04/17 15:00 Pulse 100 02/04/17 16:12 Resp 16 02/04/17 15:13 BP 144/100 02/04/17 15:00 Pulse Ox 97 02/04/17 15:54 Intake & Output 02/03/17 02/04/17 02/04/17 18:59 06:59 18:59 Intake Total 1325 Output Total 800 775 Balance 525 -775 Weight 145.7 kg Intake: IV 1175 Levofloxacin 750Mg-D5w 150 Pmx 750 mg In Dextrose/ Water 1 150ml.bag @ 100 mls/hr IVPB Q24H [facility] Rx#: [id number] Piperacillin-Tazobactam 3 50 .375 gm In Dextrose/Water 1 50ml.bag @ 12.5 mls/hr IVPB Q8H [facility] Rx#: [id number] Sodium Chloride 0.9% 1, 600 000 ml @ 75 mls/hr IV . [id number] [facility] Rx#:[id number] Sodium Phosphate 10 mmol 375 In Sodium Chloride 0.9% 250 ml @ 125 mls/hr IVPB Q2H [facility] Rx#:[id number] Oral 150 Output: Urine 800 775 Other: Voiding Method Urinal Urinal Urinal # Voids 1 2 # Bowel Movements 1 1 1 - Exam PHYSICAL EXAM: VITAL SIGNS: As above GENERAL: [Sitting up at bedside, no acute distress] HEENT: [Pupils equal conjunctiva normal. Oral mucosa moist] NECK: [Supple, no JVD] RESPIRATORY EFFORT:[ Normal] LUNGS: [Diminished with expiratory wheezing, fine left basilar crackles] CARDIOVASCULAR[ Regular S1 and S2, no murmurs, rubs or gallops, no edema] GI: [Abdomen soft, nontender, positive bowel sounds.] PSYCH: [Alert and oriented -3, mood and affect normal.] SKIN: Left lower extremity medial malleolus scab, nondraining NEURO: No focal deficits, moves all 4 extremities, strength and sensation grossly intact Microbiology 02/01/17 14:35 Blood Blood Culture - Preliminary No Growth after 48 hours 02/01/17 19:16 Urine,Catheterized Urine Culture - Final - Labs CBC & Chem 7: 02/04/17 07:39 02/04/17 07:39 Labs: Abnormal Lab Results - Last 24 Hours (Table) 02/03/17 02/04/17 02/04/17 Range/Units 21:23 06:45 07:39 MCV 102.4 H (80.0-100.0) fL Plt Count 139 L (150-450) k/uL Lymphocytes # 0.4 L (1.0-4.8) k/uL Chloride (98-107) mmol/L Carbon Dioxide (22-30) mmol/L BUN (9-20) mg/dL Glucose (74-99) mg/dL POC Glucose (mg/dL) 218 H 142 H (75-99) mg/dL Calcium (8.4-10.2) mg/dL 02/04/17 02/04/17 02/04/17 Range/Units 07:39 11:49 16:58 MCV (80.0-100.0) fL Plt Count (150-450) k/uL Lymphocytes # (1.0-4.8) k/uL Chloride 117 H (98-107) mmol/L Carbon Dioxide 17 L (22-30) mmol/L BUN 24 H (9-20) mg/dL Glucose 158 H (74-99) mg/dL POC Glucose (mg/dL) 155 H 180 H (75-99) mg/dL Calcium 8.0 L (8.4-10.2) mg/dL Microbiology - Last 24 Hours (Table) 02/01/17 14:35 Blood Culture - Preliminary Blood No Growth after 48 hours Assessment and Plan Plan: #1Sepsis secondary to combination of left lower lobe pneumonia that is community acquired and acute viral gastroenteritis #2 acute kidney injury due to prerenal azotemia, dehydration . #3 chronic atrial fib #4 chronic venous stasis #5 dyslipidemia #6 history of hypertension #7 objective sleep apnea #8 osteoarthritis #9 history of EtOH abuse #10 history of obstructive sleep apnea syndrome #11 osteoarthritis Plan: Continue on current medication regime, nebulized bronchodilators, antibiotics, monitoring and symptomatic treatment. Continue holding Pradaxa. Thoracentesis with interventional radiology pending. Further recommendations to follow. The impression and plan of care has been dictated as directed. : I performed a H&P examination of this patient and discussed the same with the dictator. I agree with the dictator's note. Any additional findings/opinions/ etc. will be noted.
[2017-02-04 21:58] LABS: Glucose,Whole Blood 212 mg/dL (75-99)
[2017-02-04] MEDS: ATORVASTATIN 20 MG TAB PO SCH (22:35)
--- NOTE | 2017-02-04 22:43 | P.PN ---
Subjective Principal diagnosis: Fever and weakness 51-year-old male has history of multiple medical troubles that includes sleep apnea requiring CPAP use. He has history of obesity. He has lower extremity venous stasis with ulcerations as follows the wound center with vascular surgery. Was having some improvement to his ulcerations as of late. However presents to the emergency center with a 5 day history of increasing illness. He was having between 5 and 6 large copious loose stools per day. He was feeling poorly. He stopped eating and drinking. He did note that his lower extremity edema started to improve a bit as he was eating and drinking so much less. He then became so weak he presented emergency center. There there is evidence of an atrial arrhythmia has been seen by cardiology. He has evidence of ulceration to the right great toe and left medial ankle which are not new. Overall he is anxious for discharge to home He is receiving the CWIA protocol Feeling better today. However still quite short of breath and awaits his thoracentesis that was held due to Pradaxa being given. Objective - Vital Signs Vital signs: Vital Signs Temp 96.3 F L 02/04/17 15:00 Pulse 108 H 02/04/17 21:20 Resp 20 02/04/17 21:20 BP 149/93 02/04/17 21:20 Pulse Ox 97 02/04/17 15:54 Intake & Output 02/04/17 02/04/17 02/05/17 06:59 18:59 06:59 Output Total 775 Balance -775 Output: Urine 775 Other: Voiding Method Urinal Urinal # Voids 1 2 # Bowel Movements 1 1 - Exam Pleasant obese gentleman quite short of breath for moving from the bedside commode to the bed HEENT: Anicteric conjunctiva are pink and moist nasal mucosa grossly intact without significant lesions, there is no thrush. Neck: The neck is supple without significant lymphadenopathy or thyromegaly. Lungs: Symmetrical air entry. Expiratory wheezes are heard. Dullness at the left base. Crackles at the left base no significant dullness some egophony at the left base is noted Heart: Regular rate and rhythm with an audible S1-S2, no S3 no S4. There is no significant murmur click or rub, PMI was nondisplaced. Abdomen: Positive bowel sounds soft and nontender without palpable masses or organomegaly. There was no guarding or rebound. Extremities: The upper extremities have excellent pulses they are symmetric, no significant petechiae or telangiectasia. No splinter hemorrhages were noted. Lower extremity 7 evidence of chronic venous stasis with edema and ulceration. There is an eschar on the medial aspect of the left distal calf above the medial malleolus. Eschar measures 2 x 2 centimeters. The right great toe plantar has evidence of the chronic ulceration measuring up to 2.2 x 0.1 much improved. Neuro: Awake alert oriented to person place and time. Decreased sensation to both feet from his neuropathy is noted. - Labs CBC & Chem 7: 02/04/17 07:39 02/04/17 07:39 Labs: Abnormal Lab Results - Last 24 Hours (Table) 02/04/17 02/04/17 02/04/17 Range/Units 06:45 07:39 07:39 MCV 102.4 H (80.0-100.0) fL Plt Count 139 L (150-450) k/uL Lymphocytes # 0.4 L (1.0-4.8) k/uL Chloride 117 H (98-107) mmol/L Carbon Dioxide 17 L (22-30) mmol/L BUN 24 H (9-20) mg/dL Glucose 158 H (74-99) mg/dL POC Glucose (mg/dL) 142 H (75-99) mg/dL Calcium 8.0 L (8.4-10.2) mg/dL 02/04/17 02/04/17 02/04/17 Range/Units 11:49 16:58 21:47 MCV (80.0-100.0) fL Plt Count (150-450) k/uL Lymphocytes # (1.0-4.8) k/uL Chloride (98-107) mmol/L Carbon Dioxide (22-30) mmol/L BUN (9-20) mg/dL Glucose (74-99) mg/dL POC Glucose (mg/dL) 155 H 180 H 212 H (75-99) mg/dL Calcium (8.4-10.2) mg/dL Microbiology - Last 24 Hours (Table) 02/01/17 14:35 Blood Culture - Preliminary Blood No Growth after 72 hours Laboratory Results WBC 5.2 k/uL (3.8-10.6) 02/04/17 07:39 RBC 4.38 m/uL (4.30-5.90) 02/04/17 07:39 Hgb 14.7 gm/dL (13.0-17.5) 02/04/17 07:39 Hct 44.9 % (39.0-53.0) 02/04/17 07:39 MCV 102.4 fL (80.0-100.0) H 02/04/17 07:39 MCH 33.5 pg (25.0-35.0) 02/04/17 07:39 MCHC 32.7 g/dL (31.0-37.0) 02/04/17 07:39 RDW 13.6 % (11.5-15.5) 02/04/17 07:39 Plt Count 139 k/uL (150-450) L 02/04/17 07:39 Neutrophils % 83 % 02/04/17 07:39 Lymphocytes % 8 % 02/04/17 07:39 Monocytes % 4 % 02/04/17 07:39 Eosinophils % 0 % 02/04/17 07:39 Basophils % 1 % 02/04/17 07:39 Neutrophils # 4.3 k/uL (1.3-7.7) 02/04/17 07:39 Lymphocytes # 0.4 k/uL (1.0-4.8) L 02/04/17 07:39 Monocytes # 0.2 k/uL (0-1.0) 02/04/17 07:39 Eosinophils # 0.0 k/uL (0-0.7) 02/04/17 07:39 Basophils # 0.0 k/uL (0-0.2) 02/04/17 07:39 Macrocytosis Slight 02/04/17 07:39 PT 10.7 sec (9.0-12.0) 02/03/17 05:24 INR 1.1 (<1.1) 02/03/17 05:24 APTT 55.1 sec (22.0-30.0) H 02/01/17 14:35 Carbon Monoxide, Quant 1.4 % (<10.0) 02/01/17 14:35 Sodium 144 mmol/L (137-145) 02/04/17 07:39 Potassium 4.2 mmol/L (3.5-5.1) 02/04/17 07:39 Chloride 117 mmol/L (98-107) H 02/04/17 07:39 Carbon Dioxide 17 mmol/L (22-30) L 02/04/17 07:39 Anion Gap 10 mmol/L 02/04/17 07:39 BUN 24 mg/dL (9-20) H 02/04/17 07:39 Creatinine 1.08 mg/dL (0.66-1.25) 02/04/17 07:39 Est GFR (MDRD) Af Amer >60 (>60 ml/min/1.73 sqM) 02/04/17 07:39 Est GFR (MDRD) Non-Af >60 (>60 ml/min/1.73 sqM) 02/04/17 07:39 Glucose 158 mg/dL (74-99) H 02/04/17 07:39 POC Glucose (mg/dL) 212 mg/dL (75-99) H 02/04/17 21:47 POC Glu Value Analysis Coordinator ID Vika Reyes 02/04/17 21:[address] Glu mg/dL 117 mg/dL 02/03/17 04:17 Hemoglobin A1c 5.7 % (4.2-6.1) 02/03/17 04:17 Plasma Lactic Acid Gregorio 1.3 mmol/L (0.7-2.0) 02/01/17 17:41 Calcium 8.0 mg/dL (8.4-10.2) L 02/04/17 07:39 Phosphorus 2.5 mg/dL (2.5-4.5) 02/04/17 07:39 Magnesium 2.2 mg/dL (1.6-2.3) 02/04/17 07:39 Total Bilirubin 0.9 mg/dL (0.2-1.3) 02/01/17 14:35 AST 206 U/L (17-59) H 02/01/17 14:35 ALT 90 U/L (21-72) H 02/01/17 14:35 Alkaline Phosphatase 78 U/L (38-126) 02/01/17 14:35 Total Creatine Kinase 1101 U/L (55-170) H 02/01/17 14:35 CK-MB (CK-2) 4.6 ng/mL (0.0-2.4) H* 02/01/17 14:35 CK-MB (CK-2) Rel Index 0.4 02/01/17 14:35 Troponin I 0.053 ng/mL (0.000-0.034) H* 02/01/17 14:35 Total Protein 6.9 g/dL (6.3-8.2) 02/01/17 14:35 Albumin 3.6 g/dL (3.5-5.0) 02/01/17 14:35 TSH 9.740 mIU/L (0.465-4.680) H 02/01/17 14:35 Free T4 1.64 ng/dL (0.78-2.19) 02/01/17 14:35 Free T3 pg/mL 5.2 pg/ml (2.8-5.3) 02/01/17 14:35 Cortisol 36 ug/dL 02/01/17 17:41 Urine Color Yellow 02/01/17 18:43 Urine Appearance Turbid (Clear) 02/01/17 18:43 Urine pH 5.5 (5.0-8.0) 02/01/17 18:43 Ur Specific [place] 1.018 (1.001-1.035) 02/01/17 18:43 Urine Protein 2+ (Negative) H 02/01/17 18:43 Urine Glucose (UA) Negative (Negative) 02/01/17 18:43 Urine Ketones Negative (Negative) 02/01/17 18:43 Urine Blood Moderate (Negative) H 02/01/17 18:43 Urine Nitrite Negative (Negative) 02/01/17 18:43 Urine Bilirubin Negative (Negative) 02/01/17 18:43 Urine Urobilinogen 3.0 mg/dL (<2.0) 02/01/17 18:43 Ur Leukocyte Esterase Negative (Negative) 02/01/17 18:43 Urine RBC 16 /hpf (0-5) H 02/01/17 18:43 Urine WBC 13 /hpf (0-5) H 02/01/17 18:43 Ur Squamous Epith Cells 1 /hpf (0-4) 02/01/17 18:43 Amorphous Sediment Rare /hpf (None) H 02/01/17 18:43 Urine Bacteria Rare /hpf (None) H 02/01/17 18:43 Urine Mucus Rare /hpf (None) H 02/01/17 18:43 C. difficile (EIA) Intrp Negative (Negative) 02/01/17 19:15 Microbiology 02/01/17 14:35 Blood Blood Culture - Preliminary No Growth after 72 hours 02/01/17 19:16 Urine,Catheterized Urine Culture - Final Assessment and Plan (1) Pneumonia Narrative/Plan: 51-year-old male presents to the emergency center feeling poorly over a week. Is having some profuse diarrhea. And became considerably weak and short of breath with small activities. Anahy who presented to the emergency center. He was found to have evidence of a left lower lobe pneumonia and effusion. Cardiac dysrhythmia. Infectious disease request for antibiotic therapy as well as care to the lower extremity ulcers. Left leg ulcer is treated with the DuoDERM. Right plantar ulceration is treated with the absorptive silver dressing. Both wrap in place. Antibiotic therapy with levofloxacin and piperacillin tazobactam are in process pending further culture results. Patient has a history of MSSA but no MRSA Continued ongoing supportive care and monitor for alcohol withdrawal is on the IA protocol. thoracentesis to improve his significant symptoms. Is planned for tomorrow. Discharge liquids and completed a course of Levaquin for his current pneumonia. Status: Acute (2) Acute renal failure (ARF) Status: Acute (3) Neuropathic ulcer of right foot with fat layer exposed Status: Acute (4) Alcoholic peripheral neuropathy Status: Acute
[2017-02-05] MEDS: SODIUM CHLORIDE 0.9% 1,000 ML IV SCH ×2 (00:46→14:10)
[2017-02-05] MEDS: PIPERACILLIN-TAZOBACTAM 3.375 GM in DEXTROSE/WATER 1 50ML.BAG IVPB SCH ×3 (03:07→17:28)
[2017-02-05 07:03] LABS: Glucose,Whole Blood 119 mg/dL (75-99)
[2017-02-05 07:09] LABS: Mycoplasma IgG Antibody (EIA) 2.04 INDEX (<=0.90); Mycoplasma IgM Antibody 0.22 INDEX (<=0.90)
[2017-02-05] MEDS: INSULIN LISPRO (humaLOG) 300 UNIT/3 ML VIAL SQ SCH ×4 (07:32→21:13)
[2017-02-05] MEDS: PANTOPRAZOLE 40 MG TABLET PO SCH (07:34)
[2017-02-05] MEDS: GABAPENTIN 400 MG CAP PO SCH ×3 (07:35→21:13)
[2017-02-05] MEDS: predniSONE 20 MG TAB PO SCH (07:35)
[2017-02-05] MEDS: ATENOLOL 25 MG TAB PO SCH (07:35)
[2017-02-05] MEDS: MULTIVITAMINS, THERA 1 EACH TAB PO SCH (07:35)
[2017-02-05] MEDS: IPRATROPIUM-ALBUTEROL 3 ML NEB INHALATION PRN ×3 (07:59→15:09)
[2017-02-05 08:41] LABS: Anion Gap 9 mmol/L; Blood Urea Nitrogen 26 mg/dL (9-20); Calcium 8.2 mg/dL (8.4-10.2); Carbon Dioxide 21 mmol/L (22-30); Chloride 117 mmol/L (98-107); Glucose 124 mg/dL (74-99); Magnesium 2.5 mg/dL (1.6-2.3); Non-African American GFR(MDRD) >60 (>60 ml/min/1.73 sqM); Phosphorous 2.8 mg/dL (2.5-4.5); Potassium 4.6 mmol/L (3.5-5.1); Sodium 147 mmol/L (137-145)
[2017-02-05 09:06] LABS: Basophils % (A) 1 %; CH 33.7; CHCM 33.9; Eosinophils % (A) 0 %; HCT 48.7 % (39.0-53.0); HDW 2.91; HGB 16.1 gm/dL (13.0-17.5); Luc % (Auto) 4; Lymphocytes # (A) 0.4 k/uL (1.0-4.8); Lymphocytes % (A) 6 %; MCH 33.2 pg (25.0-35.0); MCHC 33.1 g/dL (31.0-37.0); MCV 100.1 fL (80.0-100.0); Monocytes # (A) 0.3 k/uL (0-1.0); Monocytes % (A) 6 %; Neutrophils # (A) 4.8 k/uL (1.3-7.7); Neutrophils % (A) 84 %; RBC 4.86 m/uL (4.30-5.90); RDW 13.3 % (11.5-15.5); WBC 5.8 k/uL (3.8-10.6); WBC (Perox) 5.76
--- NOTE | 2017-02-05 09:58 | P.PN ---
Subjective Progress note dated 02/05/2017 This is a 51-year-old male with a history of all acute gastroenteritis with profound dehydration and acute kidney injury. The patient also has a history of acute sepsis acute left lower lobe pneumonia with left parapneumonic effusion chronic atrial fibrillation history of alcohol abuse asthma chronic lower extremity cellulitis sleep apnea syndrome hypertension hyperlipidemia and degenerative joint disease. The patient was to have a interventional radiology directed thoracentesis on the left side. They wanted to hold off for 3 days because he was on per DEXA and received his last per DEXA dose on Friday. Hopefully that will be done today. From the pulmonary standpoint he is feeling much better. Clinically much better. His breathing is better. He still feels a bit weak. I did tell make sure he got out of bed and walked around. Objective - Vital Signs Vital signs: Vital Signs Temp 98.0 F 02/05/17 07:00 Pulse 102 H 02/05/17 08:12 Resp 16 02/05/17 07:00 BP 143/87 02/05/17 07:00 Pulse Ox 96 02/05/17 07:59 Intake & Output 02/04/17 02/05/17 02/05/17 18:59 06:59 18:59 Intake Total 1100 Balance 1100 Intake: Oral 1100 Other: Voiding Method Urinal # Voids 2 1 # Bowel Movements 1 - Exam No acute distress, oriented 3. HEENT examination is grossly unremarkable. Mucous membranes are moist. There are no oral lesions. Neck supple. Full range of motion without adenopathy thyromegaly or neck vein distention. Cardiovascular examination reveals regular rhythm rate. S1-S2 normal. No S3- S4 or murmur. Lungs reveal mostly diminished breath sounds at the bases left greater than right. Slight dullness at the left base. A few crackles at the left base. No wheezes or rhonchi. Abdomen soft bowel sounds are heard. Extremities are intact. No cyanosis or clubbing. The left lower extremity is wrapped. There is bilateral lower extremity edema 1+ in.. Skin without rash. The some chronic venous stasis stasis changes to the lower extremities. Neurologic examination is unremarkable. - Labs CBC & Chem 7: 02/05/17 07:37 02/05/17 07:37 Labs: Abnormal Lab Results - Last 24 Hours (Table) 02/03/17 02/04/17 02/04/17 Range/Units 04:24 11:49 16:58 MCV (80.0-100.0) fL Plt Count (150-450) k/uL Lymphocytes # (1.0-4.8) k/uL Sodium (137-145) mmol/L Chloride (98-107) mmol/L Carbon Dioxide (22-30) mmol/L BUN (9-20) mg/dL Glucose (74-99) mg/dL POC Glucose (mg/dL) 155 H 180 H (75-99) mg/dL Calcium (8.4-10.2) mg/dL Magnesium (1.6-2.3) mg/dL Mycoplasma pneumon IgG 2.04 H (<=0.90) INDEX 02/04/17 02/05/17 02/05/17 Range/Units 21:47 07:01 07:37 MCV 100.1 H (80.0-100.0) fL Plt Count 144 L (150-450) k/uL Lymphocytes # 0.4 L (1.0-4.8) k/uL Sodium (137-145) mmol/L Chloride (98-107) mmol/L Carbon Dioxide (22-30) mmol/L BUN (9-20) mg/dL Glucose (74-99) mg/dL POC Glucose (mg/dL) 212 H 119 H (75-99) mg/dL Calcium (8.4-10.2) mg/dL Magnesium (1.6-2.3) mg/dL Mycoplasma pneumon IgG (<=0.90) INDEX 02/05/17 Range/Units 07:37 MCV (80.0-100.0) fL Plt Count (150-450) k/uL Lymphocytes # (1.0-4.8) k/uL Sodium 147 H (137-145) mmol/L Chloride 117 H (98-107) mmol/L Carbon Dioxide 21 L (22-30) mmol/L BUN 26 H (9-20) mg/dL Glucose 124 H (74-99) mg/dL POC Glucose (mg/dL) (75-99) mg/dL Calcium 8.2 L (8.4-10.2) mg/dL Magnesium 2.5 H (1.6-2.3) mg/dL Mycoplasma pneumon IgG (<=0.90) INDEX Microbiology - Last 24 Hours (Table) 02/01/17 14:35 Blood Culture - Preliminary Blood No Growth after 72 hours Assessment and Plan (1) Pleural effusion Status: Acute (2) Pleural effusion associated with pulmonary infection Status: Acute (3) Acute renal failure (ARF) Status: Acute (4) Alcoholic peripheral neuropathy Status: Acute (5) Atrial fibrillation Status: Acute (6) Pneumonia Status: Acute (7) Severe sepsis Status: Acute (8) Neuropathic foot ulcer Status: Acute Plan: Plan dated 02/05/2017 The patient will be sent for thoracentesis. He will be done by interventional radiology. He had to be office per DEXA for 3 days. She'll be done today. We' ll make sure everything is set including microbiology cytology chemistry. Additional recommendations suggestions are forthcoming. Clinically he is doing well his breathing is improved. We'll continue to follow. Time with Patient: Greater than 30
[2017-02-05] MEDS: THIAMINE 100 MG TAB PO SCH ×2 (12:25→16:41)
[2017-02-05 12:28] LABS: Glucose,Whole Blood 145 mg/dL (75-99)
--- NOTE | 2017-02-05 15:29 | P.PN ---
Subjective Date of service 02/05/2017. Progress note being dictated for Dr. Richmond. Interval history: This is a 51-year-old gentleman admitted with sepsis secondary to left lower lobe pneumonia, community-acquired, acute viral gastroenteritis, acute renal failure and multiple other medical issues. Maintained on Zosyn. Left pleural effusion per ultrasound, awaiting thoracentesis with interventional radiology. Pradaxa remains on hold. Afebrile , blood cultures currently negative. Denies chest pain, palpitations. Denies increase in shortness of breath. Objective - Vital Signs Vital signs: Vital Signs Temp 98.0 F 02/05/17 07:00 Pulse 79 02/05/17 15:18 Resp 16 02/05/17 07:00 BP 143/87 02/05/17 07:00 Pulse Ox 96 02/05/17 07:59 Intake & Output 02/04/17 02/05/17 02/05/17 18:59 06:59 18:59 Intake Total 1100 Balance 1100 Intake: Oral 1100 Other: Voiding Method Urinal # Voids 2 1 3 # Bowel Movements 1 1 - Exam PHYSICAL EXAM: VITAL SIGNS: As above GENERAL: [Sitting up at bedside, no acute distress,] HEENT: [Pupils equal conjunctiva normal. Oral mucosa moist] NECK: [Supple, no JVD] RESPIRATORY EFFORT:[ Normal] LUNGS: [Diminished -left greater than right,fine left basilar crackles] CARDIOVASCULAR[ Regular S1 and S2, no murmurs, rubs or gallops, positive edema] GI: [Abdomen soft, nontender, positive bowel sounds.] PSYCH: [Alert and oriented -3, mood and affect normal.] SKIN: Left lower extremity medial malleolus scab, nondraining NEURO: No focal deficits, moves all 4 extremities, strength and sensation grossly intact - Labs CBC & Chem 7: 02/05/17 07:37 02/05/17 07:37 Labs: Abnormal Lab Results - Last 24 Hours (Table) 02/03/17 02/04/17 02/04/17 Range/Units 04:24 16:58 21:47 MCV (80.0-100.0) fL Plt Count (150-450) k/uL Lymphocytes # (1.0-4.8) k/uL Sodium (137-145) mmol/L Chloride (98-107) mmol/L Carbon Dioxide (22-30) mmol/L BUN (9-20) mg/dL Glucose (74-99) mg/dL POC Glucose (mg/dL) 180 H 212 H (75-99) mg/dL Calcium (8.4-10.2) mg/dL Magnesium (1.6-2.3) mg/dL Mycoplasma pneumon IgG 2.04 H (<=0.90) INDEX 02/05/17 02/05/17 02/05/17 Range/Units 07:01 07:37 07:37 MCV 100.1 H (80.0-100.0) fL Plt Count 144 L (150-450) k/uL Lymphocytes # 0.4 L (1.0-4.8) k/uL Sodium 147 H (137-145) mmol/L Chloride 117 H (98-107) mmol/L Carbon Dioxide 21 L (22-30) mmol/L BUN 26 H (9-20) mg/dL Glucose 124 H (74-99) mg/dL POC Glucose (mg/dL) 119 H (75-99) mg/dL Calcium 8.2 L (8.4-10.2) mg/dL Magnesium 2.5 H (1.6-2.3) mg/dL Mycoplasma pneumon IgG (<=0.90) INDEX 02/05/17 Range/Units 12:06 MCV (80.0-100.0) fL Plt Count (150-450) k/uL Lymphocytes # (1.0-4.8) k/uL Sodium (137-145) mmol/L Chloride (98-107) mmol/L Carbon Dioxide (22-30) mmol/L BUN (9-20) mg/dL Glucose (74-99) mg/dL POC Glucose (mg/dL) 145 H (75-99) mg/dL Calcium (8.4-10.2) mg/dL Magnesium (1.6-2.3) mg/dL Mycoplasma pneumon IgG (<=0.90) INDEX Microbiology - Last 24 Hours (Table) 02/01/17 14:35 Blood Culture - Preliminary Blood No Growth after 72 hours Assessment and Plan Plan: #1Sepsis secondary to combination of left lower lobe pneumonia that is community acquired and acute viral gastroenteritis #2 acute kidney injury due to prerenal azotemia, dehydration . #3 chronic atrial fib #4 chronic venous stasis #5 dyslipidemia #6 history of hypertension #7 objective sleep apnea #8 osteoarthritis #9 history of EtOH abuse #10 history of obstructive sleep apnea syndrome #11 osteoarthritis Plan: Continue on current medication regime, nebulized bronchodilators, antibiotics, monitoring and symptomatic treatment. Continue holding Pradaxa. Thoracentesis with interventional radiology pending. Discharge planning in progress after thoracentesis completed. Further recommendations to follow. The impression and plan of care has been dictated as directed. : I performed a H&P examination of this patient and discussed the same with the dictator. I agree with the dictator's note. Any additional findings/opinions/ etc. will be noted.
[2017-02-05 17:30] LABS: Glucose,Whole Blood 130 mg/dL (75-99)
--- NOTE | 2017-02-05 20:49 | P.PN ---
Subjective Principal diagnosis: Fever and weakness 51-year-old male has history of multiple medical troubles that includes sleep apnea requiring CPAP use. He has history of obesity. He has lower extremity venous stasis with ulcerations as follows the wound center with vascular surgery. Was having some improvement to his ulcerations as of late. However presents to the emergency center with a 5 day history of increasing illness. He was having between 5 and 6 large copious loose stools per day. He was feeling poorly. He stopped eating and drinking. He did note that his lower extremity edema started to improve a bit as he was eating and drinking so much less. He then became so weak he presented emergency center. There there is evidence of an atrial arrhythmia has been seen by cardiology. He has evidence of ulceration to the right great toe and left medial ankle which are not new. Overall he is anxious for discharge to home He is receiving the CWIA protocol Feeling better today. However still quite short of breath and awaits his thoracentesis that was held due to Pradaxa being given. Patient agitated that his thoracentesis was not performed but understands the reasons and will except and stayed till tomorrow. Objective - Vital Signs Vital signs: Vital Signs Temp 97.2 F L 02/05/17 15:00 Pulse 79 02/05/17 15:18 Resp 20 02/05/17 15:00 BP 142/85 02/05/17 15:00 Pulse Ox 92 L 02/05/17 15:00 Intake & Output 02/05/17 02/05/17 02/06/17 06:59 18:59 06:59 Intake Total 1100 Balance 1100 Intake: Oral 1100 Other: # Voids 1 3 # Bowel Movements 1 - Exam Pleasant obese gentleman quite short of breath for moving from the bedside commode to the bed HEENT: Anicteric conjunctiva are pink and moist nasal mucosa grossly intact without significant lesions, there is no thrush. Neck: The neck is supple without significant lymphadenopathy or thyromegaly. Lungs: Symmetrical air entry. Expiratory wheezes are heard. Dullness at the left base. Crackles at the left base no significant dullness some egophony at the left base is noted Heart: Regular rate and rhythm with an audible S1-S2, no S3 no S4. There is no significant murmur click or rub, PMI was nondisplaced. Abdomen: Positive bowel sounds soft and nontender without palpable masses or organomegaly. There was no guarding or rebound. Extremities: The upper extremities have excellent pulses they are symmetric, no significant petechiae or telangiectasia. No splinter hemorrhages were noted. Lower extremity 7 evidence of chronic venous stasis with edema and ulceration. There is an eschar on the medial aspect of the left distal calf above the medial malleolus. Eschar measures 2 x 2 centimeters. The right great toe plantar has evidence of the chronic ulceration measuring up to 2.2 x 0.1 much improved. Neuro: Awake alert oriented to person place and time. Decreased sensation to both feet from his neuropathy is noted. - Labs CBC & Chem 7: 02/05/17 07:37 02/05/17 07:37 Labs: Abnormal Lab Results - Last 24 Hours (Table) 02/03/17 02/04/17 02/05/17 Range/Units 04:24 21:47 07:01 MCV (80.0-100.0) fL Plt Count (150-450) k/uL Lymphocytes # (1.0-4.8) k/uL Sodium (137-145) mmol/L Chloride (98-107) mmol/L Carbon Dioxide (22-30) mmol/L BUN (9-20) mg/dL Glucose (74-99) mg/dL POC Glucose (mg/dL) 212 H 119 H (75-99) mg/dL Calcium (8.4-10.2) mg/dL Magnesium (1.6-2.3) mg/dL Mycoplasma pneumon IgG 2.04 H (<=0.90) INDEX 02/05/17 02/05/17 02/05/17 Range/Units 07:37 07:37 12:06 MCV 100.1 H (80.0-100.0) fL Plt Count 144 L (150-450) k/uL Lymphocytes # 0.4 L (1.0-4.8) k/uL Sodium 147 H (137-145) mmol/L Chloride 117 H (98-107) mmol/L Carbon Dioxide 21 L (22-30) mmol/L BUN 26 H (9-20) mg/dL Glucose 124 H (74-99) mg/dL POC Glucose (mg/dL) 145 H (75-99) mg/dL Calcium 8.2 L (8.4-10.2) mg/dL Magnesium 2.5 H (1.6-2.3) mg/dL Mycoplasma pneumon IgG (<=0.90) INDEX 02/05/17 Range/Units 17:29 MCV (80.0-100.0) fL Plt Count (150-450) k/uL Lymphocytes # (1.0-4.8) k/uL Sodium (137-145) mmol/L Chloride (98-107) mmol/L Carbon Dioxide (22-30) mmol/L BUN (9-20) mg/dL Glucose (74-99) mg/dL POC Glucose (mg/dL) 130 H (75-99) mg/dL Calcium (8.4-10.2) mg/dL Magnesium (1.6-2.3) mg/dL Mycoplasma pneumon IgG (<=0.90) INDEX Microbiology - Last 24 Hours (Table) 02/01/17 14:35 Blood Culture - Preliminary Blood No Growth after 96 hours Laboratory Results WBC 5.8 k/uL (3.8-10.6) 02/05/17 07:37 RBC 4.86 m/uL (4.30-5.90) 02/05/17 07:37 Hgb 16.1 gm/dL (13.0-17.5) 02/05/17 07:37 Hct 48.7 % (39.0-53.0) 02/05/17 07:37 MCV 100.1 fL (80.0-100.0) H 02/05/17 07:37 MCH 33.2 pg (25.0-35.0) 02/05/17 07:37 MCHC 33.1 g/dL (31.0-37.0) 02/05/17 07:37 RDW 13.3 % (11.5-15.5) 02/05/17 07:37 Plt Count 144 k/uL (150-450) L 02/05/17 07:37 Neutrophils % 84 % 02/05/17 07:37 Lymphocytes % 6 % 02/05/17 07:37 Monocytes % 6 % 02/05/17 07:37 Eosinophils % 0 % 02/05/17 07:37 Basophils % 1 % 02/05/17 07:37 Neutrophils # 4.8 k/uL (1.3-7.7) 02/05/17 07:37 Lymphocytes # 0.4 k/uL (1.0-4.8) L 02/05/17 07:37 Monocytes # 0.3 k/uL (0-1.0) 02/05/17 07:37 Eosinophils # 0.0 k/uL (0-0.7) 02/05/17 07:37 Basophils # 0.0 k/uL (0-0.2) 02/05/17 07:37 Macrocytosis Slight 02/04/17 07:39 PT 10.7 sec (9.0-12.0) 02/03/17 05:24 INR 1.1 (<1.1) 02/03/17 05:24 APTT 55.1 sec (22.0-30.0) H 02/01/17 14:35 Carbon Monoxide, Quant 1.4 % (<10.0) 02/01/17 14:35 Sodium 147 mmol/L (137-145) H 02/05/17 07:37 Potassium 4.6 mmol/L (3.5-5.1) 02/05/17 07:37 Chloride 117 mmol/L (98-107) H 02/05/17 07:37 Carbon Dioxide 21 mmol/L (22-30) L 02/05/17 07:37 Anion Gap 9 mmol/L 02/05/17 07:37 BUN 26 mg/dL (9-20) H 02/05/17 07:37 Creatinine 0.99 mg/dL (0.66-1.25) 02/05/17 07:37 Est GFR (MDRD) Af Amer >60 (>60 ml/min/1.73 sqM) 02/05/17 07:37 Est GFR (MDRD) Non-Af >60 (>60 ml/min/1.73 sqM) 02/05/17 07:37 Glucose 124 mg/dL (74-99) H 02/05/17 07:37 POC Glucose (mg/dL) 130 mg/dL (75-99) H 02/05/17 17:29 POC Glu Manager Visual ID Belia Rao 02/05/17 17:[address] Glu mg/dL 117 mg/dL 02/03/17 04:17 Hemoglobin A1c 5.7 % (4.2-6.1) 02/03/17 04:17 Plasma Lactic Acid Gregorio 1.3 mmol/L (0.7-2.0) 02/01/17 17:41 Calcium 8.2 mg/dL (8.4-10.2) L 02/05/17 07:37 Phosphorus 2.8 mg/dL (2.5-4.5) 02/05/17 07:37 Magnesium 2.5 mg/dL (1.6-2.3) H 02/05/17 07:37 Total Bilirubin 0.9 mg/dL (0.2-1.3) 02/01/17 14:35 AST 206 U/L (17-59) H 02/01/17 14:35 ALT 90 U/L (21-72) H 02/01/17 14:35 Alkaline Phosphatase 78 U/L (38-126) 02/01/17 14:35 Total Creatine Kinase 1101 U/L (55-170) H 02/01/17 14:35 CK-MB (CK-2) 4.6 ng/mL (0.0-2.4) H* 02/01/17 14:35 CK-MB (CK-2) Rel Index 0.4 02/01/17 14:35 Troponin I 0.053 ng/mL (0.000-0.034) H* 02/01/17 14:35 Total Protein 6.9 g/dL (6.3-8.2) 02/01/17 14:35 Albumin 3.6 g/dL (3.5-5.0) 02/01/17 14:35 TSH 9.740 mIU/L (0.465-4.680) H 02/01/17 14:35 Free T4 1.64 ng/dL (0.78-2.19) 02/01/17 14:35 Free T3 pg/mL 5.2 pg/ml (2.8-5.3) 02/01/17 14:35 Cortisol 36 ug/dL 02/01/17 17:41 Urine Color Yellow 02/01/17 18:43 Urine Appearance Turbid (Clear) 02/01/17 18:43 Urine pH 5.5 (5.0-8.0) 02/01/17 18:43 Ur Specific [place] 1.018 (1.001-1.035) 02/01/17 18:43 Urine Protein 2+ (Negative) H 02/01/17 18:43 Urine Glucose (UA) Negative (Negative) 02/01/17 18:43 Urine Ketones Negative (Negative) 02/01/17 18:43 Urine Blood Moderate (Negative) H 02/01/17 18:43 Urine Nitrite Negative (Negative) 02/01/17 18:43 Urine Bilirubin Negative (Negative) 02/01/17 18:43 Urine Urobilinogen 3.0 mg/dL (<2.0) 02/01/17 18:43 Ur Leukocyte Esterase Negative (Negative) 02/01/17 18:43 Urine RBC 16 /hpf (0-5) H 02/01/17 18:43 Urine WBC 13 /hpf (0-5) H 02/01/17 18:43 Ur Squamous Epith Cells 1 /hpf (0-4) 02/01/17 18:43 Amorphous Sediment Rare /hpf (None) H 02/01/17 18:43 Urine Bacteria Rare /hpf (None) H 02/01/17 18:43 Urine Mucus Rare /hpf (None) H 02/01/17 18:43 C. difficile (EIA) Intrp Negative (Negative) 02/01/17 19:15 Urine Legionella Ag Not detected (Not detected) 02/02/17 14:47 Mycoplasma pneumon IgG 2.04 INDEX (<=0.90) H 02/03/17 04:24 Mycoplasma pneumon IgM 0.22 INDEX (<=0.90) 02/03/17 04:24 Microbiology 02/01/17 14:35 Blood Blood Culture - Preliminary No Growth after 96 hours 02/01/17 19:16 Urine,Catheterized Urine Culture - Final Assessment and Plan (1) Pneumonia Narrative/Plan: 51-year-old male presents to the emergency center feeling poorly over a week. Is having some profuse diarrhea. And became considerably weak and short of breath with small activities. Anahy who presented to the emergency center. He was found to have evidence of a left lower lobe pneumonia and effusion. Cardiac dysrhythmia. Infectious disease request for antibiotic therapy as well as care to the lower extremity ulcers. Left leg ulcer is treated with the DuoDERM. Right plantar ulceration is treated with the absorptive silver dressing. Both wrap in place. Antibiotic therapy with levofloxacin and piperacillin tazobactam are in process pending further culture results. Patient has a history of MSSA but no MRSA Continued ongoing supportive care and monitor for alcohol withdrawal is on the [facility] protocol. thoracentesis to improve his significant symptoms. Is planned for tomorrow. Discharge antibiotic will be a completed course of Levaquin for his current pneumonia. Status: Acute (2) Acute renal failure (ARF) Status: Acute (3) Neuropathic ulcer of right foot with fat layer exposed Status: Acute (4) Alcoholic peripheral neuropathy Status: Acute
[2017-02-05 20:51] LABS: Glucose,Whole Blood 156 mg/dL (75-99)
[2017-02-05] MEDS: ATORVASTATIN 20 MG TAB PO SCH (21:13)
[2017-02-06] MEDS: PIPERACILLIN-TAZOBACTAM 3.375 GM in DEXTROSE/WATER 1 50ML.BAG IVPB SCH ×2 (02:53→09:48)
[2017-02-06] MEDS: IPRATROPIUM-ALBUTEROL 3 ML NEB INHALATION PRN ×2 (06:57→11:14)
[2017-02-06 07:32] LABS: Glucose,Whole Blood 86 mg/dL (75-99)
[2017-02-06] MEDS: INSULIN LISPRO (humaLOG) 300 UNIT/3 ML VIAL SQ SCH ×2 (08:07→12:25)
[2017-02-06] MEDS: GABAPENTIN 400 MG CAP PO SCH (08:29)
[2017-02-06] MEDS: PANTOPRAZOLE 40 MG TABLET PO SCH (08:29)
[2017-02-06] MEDS: THIAMINE 100 MG TAB PO SCH (08:29)
[2017-02-06] MEDS: predniSONE 20 MG TAB PO SCH (08:30)
[2017-02-06] MEDS: MULTIVITAMINS, THERA 1 EACH TAB PO SCH (08:30)
[2017-02-06] MEDS: ATENOLOL 25 MG TAB PO SCH (08:30)
[2017-02-06 08:59] LABS: Anion Gap 6 mmol/L; Blood Urea Nitrogen 29 mg/dL (9-20); Calcium 8.6 mg/dL (8.4-10.2); Carbon Dioxide 27 mmol/L (22-30); Chloride 113 mmol/L (98-107); Glucose 92 mg/dL (74-99); Magnesium 2.5 mg/dL (1.6-2.3); Non-African American GFR(MDRD) >60 (>60 ml/min/1.73 sqM); Phosphorous 2.7 mg/dL (2.5-4.5); Potassium 4.9 mmol/L (3.5-5.1); Sodium 146 mmol/L (137-145)
[2017-02-06 09:15] LABS: Aty Lym Flag Slight; CH 33.8; CHCM 32.9; HCT 44.8 % (39.0-53.0); HDW 2.77; HGB 14.3 gm/dL (13.0-17.5); MCH 32.9 pg (25.0-35.0); MCHC 31.9 g/dL (31.0-37.0); MCV 103.2 fL (80.0-100.0); Macrocytosis Slight; Mean Platelet Volume 7.5; RBC 4.34 m/uL (4.30-5.90); RDW 13.7 % (11.5-15.5); WBC 5.7 k/uL (3.8-10.6); WBC (Perox) 5.84
[2017-02-06 10:50] LABS: Add Differential Manual Differential
[2017-02-06 10:54] LABS: Band Neutrophils % 0.5 %; Manual Review Performed; Myelocytes % 0.5 %; Nucleated Red Blood Cells 0 /100 WBC (0-0); Total Cells Counted 200
[2017-02-06 12:27] LABS: Glucose,Whole Blood 138 mg/dL (75-99)
--- NOTE | 2017-02-06 13:35 | XR ---
EXAMINATION TYPE: XR chest 1V portable DATE OF EXAM: 02/06/2017 COMPARISON: 02/03/2017 INDICATION: Postthoracentesis TECHNIQUE: Single frontal view of the chest is obtained. FINDINGS: The heart size is enlarged. The pulmonary vasculature is normal. There is a small left pleural effusion, diminished from prior study. No pneumothorax is evident. IMPRESSION: 1. Small left pleural effusion. 2. No pneumothorax postthoracentesis.
--- NOTE | 2017-02-06 13:43 | US ---
Ultrasound-guided therapeutic and diagnostic thoracentesis DATE OF EXAM: 02/06/2017 CLINICAL HISTORY: Left pleural effusion The procedure was discussed with the patient. The risks, complications, benefits, and alternatives we re discussed and any questions were answered. Informed consent was obtained. The patient was placed supine on the ultrasound table and prepped and draped in the usual sterile fas hion. All elements of maximal barrier and sterile technique were utilized. Under ultrasound guidance, access into the pleural space was obtained, via the thoracentesis catheter system and direct ultrasound guidance. Ap proximately 0.95 liters of straw-colored fluid was removed. Sample sent to pathology for analysis. The patient was stable throughout the procedure and remained stable upon discharge from Department of Radiology. IMPRESSION: 1. Successful therapeutic and diagnostic thoracentesis under ultrasound guidance.
[2017-02-06 14:19] VITALS: RESP 22; TEMP 96
[2017-02-06 14:37] VITALS: BMI 42.3
[2017-02-06 15:18] VITALS: BP 156/81; PULSE 90
--- NOTE | 2017-02-06 15:26 | P.DS ---
Providers Date of admission: 02/01/17 15:46 Expected date of discharge: 02/06/17 Attending physician: MD Dr. Yi Smith Consults: 02/01/17 15:46 Consult Physician Stat Consulting Provider: Enedelia Dubose Consult Reason/Comments: critical care Do you want consulting provider notified?: Yes 02/01/17 16:01 Consult Physician Urgent Consulting Provider: Mirna Hurd Consult Reason/Comments: a fib Do you want consulting provider notified?: Yes 02/02/17 09:44 Consult Physician Routine Consulting Provider: Jim Curiel Consult Reason/Comments: cellulits lower exts,sepsis Do you want consulting provider notified?: Yes Primary care physician: Percy Pinedo Hospital Course: Final Diagnoses: #1Sepsis secondary to combination of left lower lobe pneumonia that is community acquired and acute viral gastroenteritis, #2 acute kidney injury due to prerenal azotemia, dehydration . #3 Left pleural effusion, status post thoracentesis, cultures pending #4 chronic venous stasis, acute neuropathic ulcers of Left calf and right great toe #5 dyslipidemia #6 history of hypertension #7 objective sleep apnea #8 osteoarthritis #9 history of EtOH abuse #10 history of obstructive sleep apnea syndrome #11 osteoarthritis #12 chronic atrial fibrillation Hospital course:This is a 51-year-old gentleman admitted with septic shock secondary to left lower lobe pneumonia, community-acquired, acute viral gastroenteritis, acute renal failure and multiple other medical issues. Evaluated by pulmonary, infectious disease, cardiology. Initially required ICU. Maintained on gentle IV fluid hydration, Zosyn and Levaquin. Echo suboptimal reporting EF 50-55%. Left pleural effusion per ultrasound, status post thoracentesis interventional radiology, cultures pending. Pradaxa to resume 12 hours post-thoracentesis as recommended per interventional radiology. Patient has been cleared for discharge by all consults. Patient is being discharged home in a stable condition with guarded prognosis. The impression and plan of care has been dictated as directed as a scribe. : I performed a H&P examination of this patient and discussed the same with the dictator. I agree with the dictator's note. Any additional findings/opinions/ etc. will be noted. Patient Condition at Discharge: Stable Plan - Discharge Summary New Discharge Prescriptions: New predniSONE 10 mg PO DIRECTED #30 tab Thiamine [Vitamin B-1] 100 mg PO DAILY #30 tab Continue Atenolol [Tenormin] 25 mg PO QAM Multivitamin [Men's Multi-Vitamin] 1 tab PO DAILY Gabapentin [Neurontin] 400 mg PO TID Simvastatin [Zocor] 40 mg PO HS Allopurinol [Zyloprim] 300 mg PO DAILY Albuterol Inhaler [Ventolin Hfa Inhaler] 1 - 2 puff INHALATION RT-Q6H PRN PRN Reason: Shortness Of Breath Or Wheezing Dabigatran [Pradaxa] 150 mg PO BID #0 Discontinued Hydrochlorothiazide [Hydrodiuril] 25 mg PO DAILY Furosemide [Lasix] 20 mg PO DAILY Lisinopril [Zestril] 10 mg PO QAM Naproxen 500 mg PO BID Discharge Medication List Atenolol [Tenormin] 25 mg PO QAM 12/17/13 [History] Gabapentin [Neurontin] 400 mg PO TID 12/17/13 [History] Multivitamin [Men's Multi-Vitamin] 1 tab PO DAILY 12/17/13 [History] Simvastatin [Zocor] 40 mg PO HS 12/17/13 [History] Allopurinol [Zyloprim] 300 mg PO DAILY 01/16/15 [History] Albuterol Inhaler [Ventolin Hfa Inhaler] 1 - 2 puff INHALATION RT-Q6H PRN [History] Dabigatran [Pradaxa] 150 mg PO BID #0 02/06/17 [Rx] Thiamine [Vitamin B-1] 100 mg PO DAILY #30 tab 02/06/17 [Rx] predniSONE 10 mg PO DIRECTED #30 tab 02/06/17 [Rx] Follow up Appointment(s)/Referral(s): Shahida Greer MD [Primary Care Provider] - 3 Days Eric Ferrari DO [Doctor of Osteopathic Medicine] - 1 Week Patient Instructions/Handouts: Acute Kidney Injury (DC) Activity/Diet/Wound Care/Special Instructions: cardiac diet. Antibx. /wound care as per infectious disease
--- NOTE | 2017-02-06 15:57 | PN ---
This is a 51-year-old male with a history of acute gastroenteritis and dehydration and profound acute kidney injury. He also presented with acute sepsis secondary to left lower lobe pneumonia with left parapneumonic effusion. He has a history of chronic atrial fibrillation, alcohol abuse, chronic bronchial asthma, chronic lower extremity cellulitis. Also has a history of sleep apnea syndrome, hypertension, hyperlipidemia, DJD and obesity. The patient was scheduled to have a left thoracentesis done by Interventional Radiology. They apparently wanted to wait at least 3 days until he was off the dabigatran (Pradaxa). That is apparently going to be done today at 1. He was promised that it would be done yesterday. Anyway, it will be done today. The patient otherwise is feeling clinically well. He would like to be discharged home after the procedure is done. He denies any significant pulmonary issues; just feels weak. Coughing occasionally. No wheezes. Not coughing up much or any phlegm. Current vital signs include a temperature which is 97.7, heart rate 86, respiratory rate 20, blood pressure 144/84, mean 104, room-air saturation 94%. Appears in no acute distress. HEENT examination is grossly unremarkable. Mucous membranes are moist. No oral lesions. NECK: Supple. Full range of motion. No adenopathy or thyromegaly. Cardiovascular examination reveals regular rhythm and rate. S1, S2 normal. No S3, S4 or murmur. Lungs reveal a few scattered rhonchi. Breath sounds are diminished. There is dullness at the left base. No wheezes. Abdomen is soft. Bowel sounds are heard. No masses or tenderness. Extremities are intact. No cyanosis or clubbing. No edema. The left leg is wrapped. Skin is without rash. Extremities are otherwise normal. Neurological examination is nonfocal. Laboratory data is reviewed. White count 5.7, hemoglobin 14.3. Hematocrit is 44.8, platelet count 197,000. PT, INR normal. Sodium 146, potassium 4.9. Chloride is 113, CO2 27. Anion gap is 6. BUN and creatinine were 29 and 0.97. Microbiology is all negative, including blood and urine analysis. No recent x-rays to report. Medications are reviewed. ASSESSMENT: 1. Left pleural effusion, likely parapneumonic in origin. 2. Rule out left lower lobe pneumonia. 3. Acute renal failure with acute tubular necrosis. 4. Alcohol-induced peripheral neuropathy. 5. History of chronic atrial fibrillation. 6. Severe sepsis. 7. Neuropathic foot ulcer. PLAN: The patient will hopefully have thoracentesis done today on the left side by Interventional Radiology. It is scheduled for 1:00. He wants to be discharged home afterwards. No additional recommendations are made. Will continue to follow. Respiratory status seems stable. He himself does not want to be here in the hospital. Order-kimble, the patient is on good medications, including updrafts, some prednisone and Zosyn. Additional recommendations and suggestions are forthcoming. Prognosis is guarded.
[2017-02-06 17:02] LABS: RBC, Body Fluid 265 /uL
[2017-02-06 19:49] LABS: Glucose, BF Source Pleural Fluid; LDH, Body Fluid Source Pleural Fluid; T. Protein, Body Fluid Source Pleural Fluid; Total Protein, Body Fluid 3900 mg/dL
== END 2017-02-06 17:09 | disposition home or self-care (01) | DRG 871 ==
LOC: EC 13:56 → 6ICU 15:46 → 4MS4W 02-03 11:39
PROVIDERS: ADMIT Internal Medicine; ATTEND Internal Medicine
PROC: 0W9B3ZX Drainage of Left Pleural Cavity, Percutaneous Approach, Diagnostic (ICD-10-PCS; principal; 2017-02-06)
DX: A41.9 Sepsis, unspecified organism (principal); R65.21 Severe sepsis with septic shock; J90 Pleural effusion, not elsewhere classified; E87.2 Acidosis; N17.9 Acute kidney failure, unspecified; J18.9 Pneumonia, unspecified organism; E87.0 Hyperosmolality and hypernatremia; I48.1 Persistent atrial fibrillation; Z68.41 Body mass index [BMI] 40.0-44.9, adult; E66.9 Obesity, unspecified; L97.229 Non-pressure chronic ulcer of left calf with unspecified severity; E87.8 Other disorders of electrolyte and fluid balance, not elsewhere classified; G62.1 Alcoholic polyneuropathy; L97.519 Non-pressure chronic ulcer of other part of right foot with unspecified severity; F10.21 Alcohol dependence, in remission; E86.0 Dehydration; A08.4 Viral intestinal infection, unspecified; G89.29 Other chronic pain; M54.9 Dorsalgia, unspecified; M10.9 Gout, unspecified; J45.909 Unspecified asthma, uncomplicated; E78.5 Hyperlipidemia, unspecified; G47.33 Obstructive sleep apnea (adult) (pediatric); Z89.411 Acquired absence of right great toe; I87.8 Other specified disorders of veins; I10 Essential (primary) hypertension; Z96.60 Presence of unspecified orthopedic joint implant; M19.91 Primary osteoarthritis, unspecified site; Z79.01 Long term (current) use of anticoagulants; Z79.1 Long term (current) use of non-steroidal anti-inflammatories (NSAID); Z79.899 Other long term (current) drug therapy; Z91.048 Other nonmedicinal substance allergy status
CPT/HCPCS: 32555; 36415; 71010; 71020; 74000; 76604; 80048; 80053; 81001; 82375; 82533; 82550; 82553; 82945; 83036; 83605; 83615; 83735; 84100; 84157; 84439; 84443; 84481; 84484; 85025; 85610; 85730; 86738; 87040; 87070; 87075; 87086; 87205; 87324; 87449; 88108; 88305; 88341; 88342; 89050; 93005; 93306; 94640; 94760; 96361; 96365; 96368; 96375; 99291

== ENCOUNTER → 2017-05-07 | Outpatient (CLI) | payer BC, MEDICARE ==
[2017-05-07 14:09] LABS: INR 1.1 (<1.2); Partial Thromboplastin Time 30.3 sec (22.0-30.0); Prothrombin Time 10.7 sec (9.0-12.0)
[2017-05-07 14:11] LABS: Anion Gap 10 mmol/L; Blood Urea Nitrogen 13 mg/dL (9-20); Calcium 9.7 mg/dL (8.4-10.2); Carbon Dioxide 25 mmol/L (22-30); Chloride 105 mmol/L (98-107); Glucose 86 mg/dL (74-99); Non-African American GFR(MDRD) >60 (>60 ml/min/1.73 sqM); Potassium 4.6 mmol/L (3.5-5.1); Sodium 140 mmol/L (137-145)
[2017-05-07 14:25] LABS: Basophils % (A) 1 %; CH 33.5; CHCM 33.6; Eosinophils # (A) 0.3 k/uL (0-0.7); Eosinophils % (A) 5 %; HCT 46.5 % (39.0-53.0); HGB 15.6 gm/dL (13.0-17.5); Luc # (Auto) 0.18; Luc % (Auto) 3; Lymphocytes # (A) 1.5 k/uL (1.0-4.8); Lymphocytes % (A) 26 %; MCH 33.7 pg (25.0-35.0); MCHC 33.6 g/dL (31.0-37.0); MCV 100.4 fL (80.0-100.0); Monocytes # (A) 0.4 k/uL (0-1.0); Monocytes % (A) 7 %; Neutrophils # (A) 3.4 k/uL (1.3-7.7); Neutrophils % (A) 58 %; RBC 4.63 m/uL (4.30-5.90); WBC 5.8 k/uL (3.8-10.6); WBC (Perox) 5.51
== END | disposition home or self-care (01) ==
LOC: LABWHC1 13:19
PROVIDERS: ATTEND Internal Medicine Cardiovascular Disease
DX: I87.303 Chronic venous hypertension (idiopathic) without complications of bilateral lower extremity (principal); F10.20 Alcohol dependence, uncomplicated; E66.9 Obesity, unspecified; I48.2 Chronic atrial fibrillation
CPT/HCPCS: 36415; 80048; 85025; 85610; 85730

== ENCOUNTER → 2020-10-23 | Outpatient (CLI) | payer MEDICARE ==
--- NOTE | 2020-10-23 11:19 | FL ---
EXAMINATION TYPE: FL barium swallow DATE OF EXAM: 10/23/2020 CLINICAL INDICATION: 55-year-old male with dysphagia, sensation of solid food sticking in throat, wor sening for the past year. COMPARISON: 04/16/2013 Total Fluoroscopy Time: 2 minutes 16 seconds. Total images: 40 FINDINGS: The swallowing mechanism is normal and hypopharyngeal anatomy is preserved. However, there is a single episode of mild aspiration followed by a brief coughing episode. The cervical and thoracic portions have a normal course and caliber and normal motility. The mucosa is normal and no persistent filling defect is encountered. No hiatal hernia is present. No gastroesophageal reflux is identified. IMPRESSION: 1. A single episode of mild aspiration followed by a coughing fit suspected incidental. Clinically, i f episodes of aspiration are felt to be a frequent occurrence, speech pathology consultation can be c onsidered. 2. Otherwise, unremarkable esophagram.
== END | disposition home or self-care (01) ==
LOC: RADUSWWP 09:35
PROVIDERS: ATTEND Otolaryngology
DX: R13.10 Dysphagia, unspecified (principal)
CPT/HCPCS: 74220

== ENCOUNTER 2023-07-09 10:44 | Day surgery (SDC) | payer MEDICARE ==
[2023-07-08 10:21] VITALS: BMI 44.9
[~2023-07-09 10:44] MED LIST: LACTATED RINGERS 1,000 ML IV SCH; LIDOCAINE 1% (10MG/ML) FOR IV START INTRADERMA PRN
[2023-07-09 11:47] VITALS: TEMP 98.1
[2023-07-09] MEDS ORDERED: LIDOCAINE 1% INJ 10MG/ML (20 ML MDV) ONE (12:48)
[2023-07-09] MEDS ORDERED: PROPOFOL 10 MG/ML 20 ML VIAL IV ONE (12:48)
--- NOTE | 2023-07-09 13:00 | P.PCN ---
Date of Procedure: 07/09/23 Procedure(s) Performed: BRIEF HISTORY: Patient is a [id number] pleasant white male scheduled for an elective colonoscopy as a part of evaluation of intermittent rectal bleeding and diarrhea for the last 1-1/2 years duration. PROCEDURE PERFORMED: Colonoscopy with random biopsy. PREOPERATIVE DIAGNOSIS: Rectal bleeding and intermittent diarrhea IV sedation per Anesthesia. PROCEDURE: After informed consent was obtained, the patient, was brought into the endoscopy unit. IV sedation was administered by Anesthesia under continuous monitoring. Digital rectal examination was normal. Initially the Olympus CF-160 flexible video colonoscope was then inserted in the rectum, gradually advanced into the cecum without any difficulty. Careful examination was performed as the scope was gradually being withdrawn. Ileocecal valve and the appendiceal orifice were visualized and appeared normal. Prep was excellent. Mucosa of the cecum, ascending colon, transverse colon, descending colon, sigmoid colon, and rectum appeared normal. Scattered sigmoid diverticulosis Random biopsies were done from ascending and descending colon to rule out microscopic/collagenous colitis. Retroflexion was performed in the rectum and small internal hemorrhoids were seen. The patient tolerated the procedure well. IMPRESSION: Normal-appearing colon from rectum to cecum no evidence of colitis or colorectal neoplasia . Scattered sigmoidal diverticulosis Small internal hemorrhoids RECOMMENDATIONS: Findings of this examination were discussed with the patient as well as his family. He was advised to follow with the biopsy results. In the meantime he'll continue with a high-fiber diet and take supplements a.
[2023-07-09 13:46] VITALS: BP 123/85; PULSE 85; RESP 18
== END 2023-07-09 13:42 | disposition home or self-care (01) ==
LOC: ORWHC2ENDO 10:44
PROVIDERS: ATTEND Internal Medicine Gastroenterology
DX: K52.832 Lymphocytic colitis (principal); K57.30 Diverticulosis of large intestine without perforation or abscess without bleeding; K64.8 Other hemorrhoids; I10 Essential (primary) hypertension; E78.5 Hyperlipidemia, unspecified; J45.909 Unspecified asthma, uncomplicated; G47.33 Obstructive sleep apnea (adult) (pediatric); E66.01 Morbid (severe) obesity due to excess calories; Z91.048 Other nonmedicinal substance allergy status; Z79.51 Long term (current) use of inhaled steroids; Z79.899 Other long term (current) drug therapy; Z68.41 Body mass index [BMI] 40.0-44.9, adult
CPT/HCPCS: 88305; 88313; 45380; J2001; J2704